=== PATIENT | female | born 1950 | race Caucasian/White ===

== ENCOUNTER 2016-08-20 21:13 | Emergency (ER) | payer SELFPAY ==
[~2016-08-20] VITALS: Ht 162.6 cm; Wt 72.7 kg
[~2016-08-20 21:13] MED LIST: AMLO-511 PO; ASPI81 PO; ATOR40TA28 PO; CLOP75 PO; CRANBERRY SUPPLEMENT PO; DSS100 PO; FERR-89 PO; FISH OIL PO; HYDR-3965 PO; INSNOV SQ; LEVO75 PO; METO-323 PO; QUET200T PO; RANO500T3 PO; RISP.5 PO; TRAZ-144 PO; VITAD1000 PO
[2016-08-20] MEDS ORDERED: LEVO125 PO (21:31)
[2016-08-20] MEDS ORDERED: [UNRECOGNIZED DRUG - CODE] PO (21:31)
[2016-08-20] MEDS ORDERED: OMEP20 PO (21:31)
[2016-08-20] MEDS ORDERED: ASCO500 PO (21:31)
[2016-08-20] MEDS ORDERED: LORA10TA7 PO (21:31)
[2016-08-20] MEDS ORDERED: DOCU250C91 PO (21:31)
[2016-08-20] MEDS ORDERED: QUET200T PO (21:31)
[2016-08-20] MEDS ORDERED: INSLAN SQ (21:31)
[2016-08-20 23:01] LABS: GLUCOSE,POINT OF CARE 75 MG/DL (70-110)
[2016-08-20 23:39] VITALS: BP 142/70
== END 2016-08-20 23:42 | disposition home or self-care (01) ==
LOC: EMS 21:16
DX: T38.3X1A Poisoning by insulin and oral hypoglycemic [antidiabetic] drugs, accidental (unintentional), initial encounter (principal); E11.9 Type 2 diabetes mellitus without complications; I10 Essential (primary) hypertension; E78.00 Pure hypercholesterolemia, unspecified; E03.9 Hypothyroidism, unspecified; Z79.4 Long term (current) use of insulin; Z79.82 Long term (current) use of aspirin; Y92.89 Other specified places as the place of occurrence of the external cause
CPT/HCPCS: 82962; 99281; 99282

== ENCOUNTER 2017-06-21 17:36 | Emergency (ER) | payer MEDICARE ==
[~2017-06-21] VITALS: Ht 160 cm; Wt 68.2 kg
[~2017-06-21 17:36] MED LIST changes: +ASCO500 PO; +DOCU250C91 PO; -DSS100 PO; -HYDR-3965 PO; +INSLAN SQ; +LEVO125 PO; -LEVO75 PO; +LORA10TA7 PO; -METO-323 PO; +METO25XL PO; +OMEP20 PO; -TRAZ-144 PO; -VITAD1000 PO; +[UNRECOGNIZED DRUG - CODE] PO
[2017-06-21] MEDS ORDERED: LEVO137T24 PO (17:54)
[2017-06-21] MEDS ORDERED: FISH1CAP63 PO (17:54)
[2017-06-21] MEDS ORDERED: CRAN300T PO (17:54)
[2017-06-21 17:58] LABS: GLUCOSE,POINT OF CARE 162 MG/DL (70-110)
[2017-06-21] MEDS ORDERED: HYDROCODONE/ACETAMINOPHEN 5-325 MG TABLET PO ONE (19:00)
[2017-06-21 19:20] VITALS: BP 135/67
== END 2017-06-21 19:27 | disposition home or self-care (01) ==
LOC: EMS 17:38
DX: S52.502A Unspecified fracture of the lower end of left radius, initial encounter for closed fracture (principal); E11.9 Type 2 diabetes mellitus without complications; E78.00 Pure hypercholesterolemia, unspecified; I10 Essential (primary) hypertension; E03.9 Hypothyroidism, unspecified; Z79.4 Long term (current) use of insulin; Z79.82 Long term (current) use of aspirin; W01.0XXA Fall on same level from slipping, tripping and stumbling without subsequent striking against object, initial encounter; Y93.01 Activity, walking, marching and hiking; Y92.89 Other specified places as the place of occurrence of the external cause; Y99.8 Other external cause status
CPT/HCPCS: 82962; 99284

== ENCOUNTER 2017-12-19 20:42 | Inpatient (IN) | payer MEDICARE ==
[~2017-12-19] VITALS: Ht 160 cm; Wt 69.8 kg
[~2017-12-19 20:42] MED LIST changes: +CRAN300T PO; -CRANBERRY SUPPLEMENT PO; -FISH OIL PO; +FISH1CAP63 PO; -LEVO125 PO; +LEVO137T24 PO
[2017-12-19] MEDS ORDERED: ACETAMINOPHEN 500 MG TABLET ONE (21:12)
[2017-12-19] MEDS ORDERED: ACETAMINOPHEN 500 MG TABLET PO ONE (21:15)
[2017-12-19] MEDS ORDERED: ACETAMINOPHEN 160 MG/5 ML SUSPENSION UDCUP PO ONE (21:15)
[2017-12-19] MEDS ORDERED: ACETAMINOPHEN 160 MG/5 ML SUSPENSION UDCUP ONE (21:16)
[2017-12-19] MEDS ORDERED: TRAZ-144 PO (21:30)
[2017-12-19] MEDS ORDERED: LOSA25TA21 PO (21:30)
[2017-12-19] MEDS ORDERED: VITAD1000 PO (21:30)
[2017-12-19] MEDS ORDERED: MEMA5 PO (21:30)
[2017-12-19 21:59] LABS: BASOPHILS % (AUTO) 0.4 % (0.0-2.0); EOSINOPHILS % (AUTO) 0.2 % (1.0-6.0); HEMATOCRIT 40.7 % (36-46); HEMOGLOBIN 13.9 g/dL (12.0-16.0); LYMPHOCYTES # (AUTO) 0.5 K/uL (1.0-4.8); LYMPHOCYTES % (AUTO) 5.9 % (22.0-44.0); MEAN CORPUSCULAR HEMOGLOBIN 31.5 pg (26.0-34.0); MEAN CORPUSCULAR HGB CONC 34.2 G/dL (31.0-37.0); MEAN CORPUSCULAR VOLUME 92 fL (80-100); MONOCYTES # (AUTO) 0.8 K/uL (0.1-1.0); MONOCYTES % (AUTO) 8.9 % (2.0-9.0); NEUTROPHILS # (AUTO) 7.3 K/uL (1.8-7.7); NEUTROPHILS % (AUTO) 84.6 % (40.0-70.0); PLATELET COUNT (AUTO) 141 K/uL (150-450); RED BLOOD CELL COUNT(AUTO) 4.43 MIL/uL (4.00-5.20); RED CELL DISTRIBUTION WIDTH 12.7 % (11.5-14.5)
[2017-12-19 22:16] LABS: CREATININE 1.69 mg/dL (0.60-1.30); POTASSIUM 4.2 mmol/L (3.5-5.1)
[2017-12-19 22:22] LABS: ALBUMIN 3.6 g/dL (3.4-5.0)
[2017-12-19 22:25] LABS: LACTIC ACID 1.9 mmol/L (0.4-2.0)
[2017-12-20] VITALS (7 sets, daily range): BP systolic 102–132; BP diastolic 53–71
[2017-12-20] MEDS ORDERED: SODIUM CHLORIDE 0.9% 2,000 ML IV ONE
[2017-12-20] MEDS ORDERED: 0.9% SODIUM CHLORIDE 10 ML SYRINGE IVP PRN
[2017-12-20] MEDS ORDERED: CefTRIAXone SODIUM 1 GM in DEXTROSE 5%-WATER 10 ML IV ONE ×2
[2017-12-20 00:19] LABS: APPEARANCE,URINE CLOUDY (CLEAR); BILIRUBIN,URINE NEGATIVE (NEGATIVE); GLUCOSE, URINE (UA) NEGATIVE (NEGATIVE); KETONES,URINE NEGATIVE (NEGATIVE); LEUKOCYTE ESTERASE ,URINE LARGE (NEGATIVE); NITRATE,URINE NEGATIVE (NEGATIVE); OCCULT BLOOD,URINE LARGE (NEGATIVE); PH,URINE 5.5 (5.0-8.0); PROTEIN,URINE SEE CONFIRM (NEGATIVE)
[2017-12-20 00:31] LABS: SULFOSALICYLIC ACID,URINE 1+ (Negative)
[2017-12-20 00:32] LABS: BACTERIA,URINE Few /HPF (None Seen); SQUAMOUS EPITHELIAL CELL,UR Few /LPF (None Seen); WBC,URINE 26-50 /HPF (0-5)
[2017-12-20] MEDS ORDERED: IPRATROPIUM BROMIDE 0.5 MG/2.5 ML NEB SOLUTION NEB PRN (01:30)
[2017-12-20] MEDS ORDERED: MORPHINE SULFATE 4 MG/ML SYRINGE IVP PRN (01:30)
[2017-12-20] MEDS ORDERED: ALBUTEROL SULFATE 2.5 MG/0.5 ML NEB SOLUTION NEB PRN (01:30)
[2017-12-20] MEDS ORDERED: ACETAMINOPHEN 325 MG TABLET PO PRN ×2 (01:30)
[2017-12-20] MEDS ORDERED: MAGNESIUM HYDROXIDE SUSPENSION 30 ML UDCUP PO PRN (01:30)
[2017-12-20] MEDS ORDERED: BISACODYL 10 MG RECTAL RECTAL SUPPOSITORY PR PRN (01:30)
[2017-12-20] MEDS ORDERED: OxyCODONE HCL/ACETAMINOPHEN 5-325 MG TABLET PO PRN (01:30)
[2017-12-20] MEDS ORDERED: ZOLPIDEM TARTRATE 5 MG TABLET PO PRN (01:30)
[2017-12-20] MEDS ORDERED: ONDANSETRON HCL 4 MG/2 ML VIAL IVP PRN ×2 (01:30)
[2017-12-20] MEDS: LEVOTHYROXINE SODIUM 137 MCG TABLET PO SCH (06:10)
[2017-12-20] MEDS: FERROUS SULFATE 325 MG EC TABLET PO SCH ×2 (08:28→18:14)
[2017-12-20] MEDS: METOPROLOL SUCCINATE 25 MG ER TABLET PO SCH (08:29)
[2017-12-20] MEDS: CLOPIDOGREL BISULFATE 75 MG TABLET PO SCH (08:29)
[2017-12-20] MEDS: PANTOPRAZOLE SODIUM 40 MG DR TABLET PO SCH (08:29)
[2017-12-20] MEDS: RisperiDONE 0.5 MG TABLET PO SCH (08:29)
[2017-12-20] MEDS: CHOLECALCIFEROL (VIT D3) 1,000 UNITS TABLET PO SCH (08:29)
[2017-12-20] MEDS: MEMANTINE HCL 5 MG TABLET PO SCH ×2 (08:29→20:43)
[2017-12-20] MEDS: QUEtiapine FUMARATE 200 MG TABLET PO SCH ×2 (08:29→20:42)
[2017-12-20] MEDS: OMEGA-3/DHA/EPA/FISH OIL 1,000 MG CAPSULE PO SCH ×2 (08:29→20:42)
[2017-12-20] MEDS: ATORVASTATIN CALCIUM 40 MG TABLET PO SCH (08:29)
[2017-12-20] MEDS: ASPIRIN 81 MG CHEWABLE TABLET PO SCH (08:30)
[2017-12-20] MEDS ORDERED: [UNRECOGNIZED DRUG - OTHER] PO SCH (09:00)
[2017-12-20] MEDS: LOSARTAN POTASSIUM 25 MG TABLET PO SCH (20:42)
[2017-12-20] MEDS: TraZODone HCL 50 MG TABLET PO SCH (20:42)
[2017-12-20] MEDS: INSULIN GLARGINE,HUM.REC.ANLOG 100 UNITS/ML SQ SCH (20:43)
[2017-12-21 05:13] VITALS: BP 119/71
[2017-12-21] MEDS: LEVOTHYROXINE SODIUM 137 MCG TABLET PO SCH (06:13)
[2017-12-21 07:19] VITALS: BP 140/83
[2017-12-21] MEDS: PANTOPRAZOLE SODIUM 40 MG DR TABLET PO SCH (08:08)
[2017-12-21] MEDS: RisperiDONE 0.5 MG TABLET PO SCH (08:08)
[2017-12-21] MEDS: FERROUS SULFATE 325 MG EC TABLET PO SCH ×2 (08:08→17:47)
[2017-12-21] MEDS: QUEtiapine FUMARATE 200 MG TABLET PO SCH ×2 (08:08→21:01)
[2017-12-21] MEDS: METOPROLOL SUCCINATE 25 MG ER TABLET PO SCH (08:08)
[2017-12-21] MEDS: MEMANTINE HCL 5 MG TABLET PO SCH ×2 (08:08→21:01)
[2017-12-21] MEDS: CLOPIDOGREL BISULFATE 75 MG TABLET PO SCH (08:08)
[2017-12-21] MEDS: ATORVASTATIN CALCIUM 40 MG TABLET PO SCH (08:08)
[2017-12-21] MEDS: OMEGA-3/DHA/EPA/FISH OIL 1,000 MG CAPSULE PO SCH ×2 (08:08→21:01)
[2017-12-21] MEDS: ASPIRIN 81 MG CHEWABLE TABLET PO SCH (08:08)
[2017-12-21] MEDS: CHOLECALCIFEROL (VIT D3) 1,000 UNITS TABLET PO SCH (08:08)
[2017-12-21 09:32] LABS: BASOPHILS % (AUTO) 0.5 % (0.0-2.0); EOSINOPHILS % (AUTO) 0.3 % (1.0-6.0); HEMATOCRIT 34.8 % (36-46); HEMOGLOBIN 12.2 g/dL (12.0-16.0); LYMPHOCYTES # (AUTO) 0.6 K/uL (1.0-4.8); LYMPHOCYTES % (AUTO) 11.2 % (22.0-44.0); MEAN CORPUSCULAR HEMOGLOBIN 32.2 pg (26.0-34.0); MEAN CORPUSCULAR HGB CONC 35.1 G/dL (31.0-37.0); MEAN CORPUSCULAR VOLUME 92 fL (80-100); MONOCYTES # (AUTO) 0.5 K/uL (0.1-1.0); MONOCYTES % (AUTO) 9.9 % (2.0-9.0); NEUTROPHILS # (AUTO) 4.3 K/uL (1.8-7.7); NEUTROPHILS % (AUTO) 78.1 % (40.0-70.0); PLATELET COUNT (AUTO) 126 K/uL (150-450); RED BLOOD CELL COUNT(AUTO) 3.78 MIL/uL (4.00-5.20); RED CELL DISTRIBUTION WIDTH 12.7 % (11.5-14.5)
[2017-12-21 09:40] LABS: INR 1.1 (0.9-1.1)
[2017-12-21 09:47] LABS: ALBUMIN 2.8 g/dL (3.4-5.0); BILIRUBIN,TOTAL 0.8 mg/dL (0.1-1.0); CALCIUM, TOTAL 8.1 mg/dL (8.8-10.5); CREATININE 1.59 mg/dL (0.60-1.30); MAGNESIUM 1.6 mg/dL (1.80-2.40); PHOSPHORUS 2.4 mg/dL (2.5-4.9); POTASSIUM 3.9 mmol/L (3.5-5.1); TOTAL PROTEIN, SERUM 6.5 g/dL (6.4-8.2)
[2017-12-21] MEDS ORDERED: MAGNESIUM SULFATE 2 GM in DEXTROSE 5%-WATER 50 ML IV PRN (10:00)
[2017-12-21] MEDS ORDERED: MAGNESIUM SULFATE 4 GM/WATER 100 ML IV PRN (10:00)
[2017-12-21 11:07] VITALS: BP 131/68
[2017-12-21] MEDS: MAGNESIUM OXIDE 400 MG TABLET PO PRN ×3 (12:12→21:06)
[2017-12-21 15:58] VITALS: BP 159/78
[2017-12-21 20:07] VITALS: BP 162/82
[2017-12-21] MEDS: LOSARTAN POTASSIUM 25 MG TABLET PO SCH (21:01)
[2017-12-21] MEDS: TraZODone HCL 50 MG TABLET PO SCH (21:01)
[2017-12-21] MEDS: INSULIN GLARGINE,HUM.REC.ANLOG 100 UNITS/ML SQ SCH (21:02)
[2017-12-21 23:37] VITALS: BP 164/92
[2017-12-22 04:09] VITALS: BP 162/82
[2017-12-22] MEDS: LEVOTHYROXINE SODIUM 137 MCG TABLET PO SCH (05:50)
[2017-12-22 07:22] VITALS: BP 156/90
[2017-12-22] MEDS: PANTOPRAZOLE SODIUM 40 MG DR TABLET PO SCH (09:18)
[2017-12-22] MEDS: ATORVASTATIN CALCIUM 40 MG TABLET PO SCH (09:18)
[2017-12-22] MEDS: FERROUS SULFATE 325 MG EC TABLET PO SCH ×2 (09:18→18:01)
[2017-12-22] MEDS: QUEtiapine FUMARATE 200 MG TABLET PO SCH ×2 (09:18→21:26)
[2017-12-22] MEDS: CHOLECALCIFEROL (VIT D3) 1,000 UNITS TABLET PO SCH (09:18)
[2017-12-22] MEDS: OMEGA-3/DHA/EPA/FISH OIL 1,000 MG CAPSULE PO SCH ×2 (09:18→21:27)
[2017-12-22] MEDS: CLOPIDOGREL BISULFATE 75 MG TABLET PO SCH (09:18)
[2017-12-22] MEDS: MEMANTINE HCL 5 MG TABLET PO SCH ×2 (09:18→21:26)
[2017-12-22] MEDS: RisperiDONE 0.5 MG TABLET PO SCH (09:18)
[2017-12-22] MEDS: ASPIRIN 81 MG CHEWABLE TABLET PO SCH (09:19)
[2017-12-22] MEDS: METOPROLOL SUCCINATE 25 MG ER TABLET PO SCH (09:20)
[2017-12-22 11:14] VITALS: BP 116/74
[2017-12-22] MEDS: CefTRIAXone SODIUM 1 GM in DEXTROSE 5%-WATER 10 ML IV SCH (12:26)
[2017-12-22 15:09] VITALS: BP 119/74
[2017-12-22 19:47] VITALS: BP 155/93
[2017-12-22] MEDS: LOSARTAN POTASSIUM 25 MG TABLET PO SCH (21:26)
[2017-12-22] MEDS: TraZODone HCL 50 MG TABLET PO SCH (21:27)
[2017-12-22] MEDS: INSULIN GLARGINE,HUM.REC.ANLOG 100 UNITS/ML SQ SCH (21:38)
[2017-12-22 23:33] VITALS: BP 147/80
[2017-12-23 00:09] LABS: GLUCOMETER DEV NAME(LOC) 5N 2S; GLUCOSE,POINT OF CARE 226 MG/DL (70-110)
[2017-12-23 00:09] LABS: GLUCOMETER DEV NAME(LOC) 5N 2S; GLUCOSE,POINT OF CARE 159 MG/DL (70-110)
[2017-12-23 04:27] VITALS: BP 141/83
[2017-12-23] MEDS: LEVOTHYROXINE SODIUM 137 MCG TABLET PO SCH (06:29)
[2017-12-23 07:13] VITALS: BP 127/77
[2017-12-23] MEDS: QUEtiapine FUMARATE 200 MG TABLET PO SCH (08:04)
[2017-12-23] MEDS: CHOLECALCIFEROL (VIT D3) 1,000 UNITS TABLET PO SCH (08:04)
[2017-12-23] MEDS: CLOPIDOGREL BISULFATE 75 MG TABLET PO SCH (08:04)
[2017-12-23] MEDS: ATORVASTATIN CALCIUM 40 MG TABLET PO SCH (08:04)
[2017-12-23] MEDS: PANTOPRAZOLE SODIUM 40 MG DR TABLET PO SCH (08:04)
[2017-12-23] MEDS: ASPIRIN 81 MG CHEWABLE TABLET PO SCH (08:04)
[2017-12-23] MEDS: RisperiDONE 0.5 MG TABLET PO SCH (08:05)
[2017-12-23] MEDS: MEMANTINE HCL 5 MG TABLET PO SCH (08:05)
[2017-12-23] MEDS: OMEGA-3/DHA/EPA/FISH OIL 1,000 MG CAPSULE PO SCH (08:05)
[2017-12-23] MEDS: METOPROLOL SUCCINATE 25 MG ER TABLET PO SCH (08:05)
[2017-12-23] MEDS: FERROUS SULFATE 325 MG EC TABLET PO SCH (08:05)
[2017-12-23 11:01] VITALS: BP 137/75
[2017-12-23] MEDS ORDERED: CEFX1I IV (12:36)
[2017-12-23] MEDS: CefTRIAXone SODIUM 1 GM in DEXTROSE 5%-WATER 10 ML IV SCH (13:09)
[2017-12-23 14:45] VITALS: BP 126/78
== END 2017-12-23 18:15 | DRG 872 ==
LOC: EMS 23:36 → 5N 12-20 00:01
PROVIDERS: ADMIT Internal Medicine; ATTEND Internal Medicine
DX: A41.9 Sepsis, unspecified organism (principal); N17.9 Acute kidney failure, unspecified; F20.0 Paranoid schizophrenia; N39.0 Urinary tract infection, site not specified; E03.9 Hypothyroidism, unspecified; D50.9 Iron deficiency anemia, unspecified; I12.9 Hypertensive chronic kidney disease with stage 1 through stage 4 chronic kidney disease, or unspecified chronic kidney disease; E11.22 Type 2 diabetes mellitus with diabetic chronic kidney disease; E78.00 Pure hypercholesterolemia, unspecified; E86.0 Dehydration; I25.10 Atherosclerotic heart disease of native coronary artery without angina pectoris; R26.9 Unspecified abnormalities of gait and mobility; B96.20 Unspecified Escherichia coli [E. coli] as the cause of diseases classified elsewhere; N18.3 Chronic kidney disease, stage 3 (moderate); M19.90 Unspecified osteoarthritis, unspecified site; K21.9 Gastro-esophageal reflux disease without esophagitis; K59.00 Constipation, unspecified; Z95.1 Presence of aortocoronary bypass graft; Z90.710 Acquired absence of both cervix and uterus; Z79.4 Long term (current) use of insulin; Z79.02 Long term (current) use of antithrombotics/antiplatelets; Z79.82 Long term (current) use of aspirin; Z79.899 Other long term (current) drug therapy
CPT/HCPCS: 83605; 83735; 84100; 87040; 87086; 93005; 97116; 97162; 97166; 97530; 97535; 99291; J0696; J1815; J7030; J7060

== ENCOUNTER 2018-01-28 10:14 | Emergency (ER) | payer MEDICARE ==
[~2018-01-28] VITALS: Ht 162.6 cm; Wt 72.7 kg
[~2018-01-28 10:14] MED LIST changes: -AMLO-511 PO; -ASCO500 PO; +CEFX1I IV; -CRAN300T PO; -DOCU250C91 PO; -LORA10TA7 PO; +LOSA25TA21 PO; +MEMA5 PO; -RANO500T3 PO; +TRAZ-219 PO; +VITAD1000 PO; -[UNRECOGNIZED DRUG - CODE] PO
[2018-01-28] MEDS ORDERED: MEMA5 PO (10:32)
[2018-01-28] MEDS ORDERED: IBUPROFEN 800 MG TABLET PO ONE (11:00)
[2018-01-28] MEDS ORDERED: BACITRACIN 0.9 GM PACKET OINTMENT TP ONE (11:30)
[2018-01-28 11:45] VITALS: BP 139/74
== END 2018-01-28 11:53 | disposition home or self-care (01) ==
LOC: EMS 10:16
DX: S91.202A Unspecified open wound of left great toe with damage to nail, initial encounter (principal); E11.9 Type 2 diabetes mellitus without complications; E78.00 Pure hypercholesterolemia, unspecified; I10 Essential (primary) hypertension; E03.9 Hypothyroidism, unspecified; Z88.5 Allergy status to narcotic agent; Z79.4 Long term (current) use of insulin; W19.XXXA Unspecified fall, initial encounter; Y93.89 Activity, other specified; Y92.89 Other specified places as the place of occurrence of the external cause; Y99.8 Other external cause status
CPT/HCPCS: 11730; 99284

== ENCOUNTER 2018-03-31 19:38 | Emergency (ER) | payer MEDICARE ==
[~2018-03-31] VITALS: Ht 162.6 cm; Wt 72.7 kg
[~2018-03-31 19:38] MED LIST changes: +LOSA25TA16 PO; -LOSA25TA21 PO
[2018-03-31 21:57] LABS: APPEARANCE,URINE CLOUDY (CLEAR); BILIRUBIN,URINE NEGATIVE (NEGATIVE); GLUCOSE, URINE (UA) NEGATIVE (NEGATIVE); KETONES,URINE NEGATIVE (NEGATIVE); LEUKOCYTE ESTERASE ,URINE MODERATE (NEGATIVE); NITRATE,URINE POSITIVE (NEGATIVE); OCCULT BLOOD,URINE TRACE (NEGATIVE); PH,URINE 5.5 (5.0-8.0); PROTEIN,URINE NEGATIVE (NEGATIVE); UROBILINOGEN,URINE 0.2 mg/dL (<=1.0)
[2018-03-31 21:58] LABS: BASOPHILS % (AUTO) 0.4 % (0.0-2.0); EOSINOPHILS % (AUTO) 0.7 % (1.0-6.0); HEMATOCRIT 41.5 % (36-46); HEMOGLOBIN 14.1 g/dL (12.0-16.0); LYMPHOCYTES # (AUTO) 1.2 K/uL (1.0-4.8); LYMPHOCYTES % (AUTO) 10.5 % (22.0-44.0); MEAN CORPUSCULAR VOLUME 91 fL (80-100); MONOCYTES # (AUTO) 0.7 K/uL (0.1-1.0); MONOCYTES % (AUTO) 6.4 % (2.0-9.0); NEUTROPHILS # (AUTO) 9.2 K/uL (1.8-7.7); RED BLOOD CELL COUNT(AUTO) 4.55 MIL/uL (4.00-5.20); RED CELL DISTRIBUTION WIDTH 13.3 % (11.5-14.5)
[2018-03-31 22:06] LABS: RBC,URINE 0-2 /HPF (0-2)
[2018-03-31 22:07] LABS: BACTERIA,URINE Many /HPF (None Seen); SQUAMOUS EPITHELIAL CELL,UR None Seen /LPF (None Seen); WBC,URINE 26-50 /HPF (0-5)
[2018-03-31 22:13] LABS: CALCIUM, TOTAL 9.2 mg/dL (8.8-10.5); CREATININE 1.36 mg/dL (0.60-1.30); POTASSIUM 4.8 mmol/L (3.5-5.1)
[2018-03-31 22:19] LABS: ALBUMIN 3.8 g/dL (3.4-5.0); BILIRUBIN,TOTAL 0.4 mg/dL (0.1-1.0); PLATELET COUNT (AUTO) 176 K/uL (150-450); TOTAL PROTEIN, SERUM 8.2 g/dL (6.4-8.2)
[2018-03-31 22:51] VITALS: BP 148/90
[2018-03-31] MEDS ORDERED: CefTRIAXone SODIUM 1 GM/VIAL IM ONE (23:00)
[2018-03-31] MEDS ORDERED: LIDOCAINE/PF 1% 2 ML VIAL IM ONE (23:00)
== END 2018-03-31 23:09 | disposition home or self-care (01) ==
LOC: EMS 19:39
DX: N39.0 Urinary tract infection, site not specified (principal); I10 Essential (primary) hypertension; E03.9 Hypothyroidism, unspecified; F20.9 Schizophrenia, unspecified; Z88.5 Allergy status to narcotic agent; Z79.01 Long term (current) use of anticoagulants; Z79.82 Long term (current) use of aspirin; Z79.899 Other long term (current) drug therapy; Z79.4 Long term (current) use of insulin
CPT/HCPCS: 36415; 51701; 80053; 81001; 85025; 87077; 87086; 87186; 96372; 99284; J0696; J3490

== ENCOUNTER 2018-08-26 14:03 | Emergency (ER) | payer MEDICARE ==
[~2018-08-26] VITALS: Ht 162.6 cm; Wt 81.8 kg
[~2018-08-26 14:03] MED LIST changes: -CLOP75 PO; +CLOP75TA17 PO; -LOSA25TA16 PO; +LOSA25TA41 PO
[2018-08-26] MEDS ORDERED: ASPIRIN 81 MG CHEWABLE TABLET PO ONE (14:30)
[2018-08-26 14:34] LABS: GLUCOSE,POINT OF CARE 238 MG/DL (70-110)
[2018-08-26 15:37] LABS: BASOPHILS % (AUTO) 0.4 % (0.0-2.0); EOSINOPHILS % (AUTO) 0.7 % (1.0-6.0); HEMATOCRIT 39.9 % (36-46); HEMOGLOBIN 13.8 g/dL (12.0-16.0); LYMPHOCYTES % (AUTO) 14.8 % (22.0-44.0); MEAN CORPUSCULAR HGB CONC 34.4 G/dL (31.0-37.0); MEAN CORPUSCULAR VOLUME 93 fL (80-100); MONOCYTES # (AUTO) 0.5 K/uL (0.1-1.0); NEUTROPHILS # (AUTO) 4.9 K/uL (1.8-7.7); NEUTROPHILS % (AUTO) 76.1 % (40.0-70.0); PLATELET COUNT (AUTO) 166 K/uL (150-450); RED CELL DISTRIBUTION WIDTH 12.6 % (11.5-14.5)
[2018-08-26 16:21] LABS: CREATININE 1.33 mg/dL (0.60-1.30); POTASSIUM 4.3 mmol/L (3.5-5.1)
[2018-08-26 16:29] LABS: ALBUMIN 3.4 g/dL (3.4-5.0); BILIRUBIN,TOTAL 0.4 mg/dL (0.1-1.0); TOTAL PROTEIN, SERUM 7.3 g/dL (6.4-8.2)
[2018-08-26 17:02] LABS: APPEARANCE,URINE CLOUDY (CLEAR); BILIRUBIN,URINE NEGATIVE (NEGATIVE); GLUCOSE, URINE (UA) NEGATIVE (NEGATIVE); KETONES,URINE NEGATIVE (NEGATIVE); LEUKOCYTE ESTERASE ,URINE SMALL (NEGATIVE); NITRATE,URINE POSITIVE (NEGATIVE); OCCULT BLOOD,URINE TRACE (NEGATIVE); PH,URINE 5.5 (5.0-8.0); PROTEIN,URINE NEGATIVE (NEGATIVE); UROBILINOGEN,URINE 0.2 mg/dL (<=1.0)
[2018-08-26 17:10] LABS: BACTERIA,URINE Many /HPF (None Seen); SQUAMOUS EPITHELIAL CELL,UR Rare /LPF (None Seen)
[2018-08-26 18:20] VITALS: BP 120/53
== END 2018-08-26 19:02 | disposition home or self-care (01) ==
LOC: EMS 14:04
DX: R07.9 Chest pain, unspecified (principal); I10 Essential (primary) hypertension; E78.00 Pure hypercholesterolemia, unspecified; E11.9 Type 2 diabetes mellitus without complications; E03.9 Hypothyroidism, unspecified; F20.9 Schizophrenia, unspecified; Z79.4 Long term (current) use of insulin; Z79.82 Long term (current) use of aspirin; Z88.5 Allergy status to narcotic agent
CPT/HCPCS: 87086; 93005

== ENCOUNTER 2020-06-29 10:35 | Emergency (ER) | payer MEDICARE ==
[~2020-06-29] VITALS: Ht 165.1 cm; Wt 95.5 kg
[~2020-06-29 10:35] MED LIST changes: +ASPI-728 PO; -ASPI81 PO; -CEFX1I IV; +CHOL100018 PO; +CLOP-31 PO; -CLOP75TA17 PO; -INSNOV SQ; +LOSA25TA21 PO; -LOSA25TA41 PO; -RISP.5 PO; +RISP0.5T39 PO; -TRAZ-219 PO; +TRAZ-252 PO; -VITAD1000 PO
[2020-06-29 10:58] LABS: GLUCOSE,POINT OF CARE 96 MG/DL (70-110)
[2020-06-29 12:27] LABS: BASOPHILS % (AUTO) 0.7 % (0.0-2.0); EOSINOPHILS % (AUTO) 1.2 % (1.0-6.0); HEMATOCRIT 36.8 % (36-46); HEMOGLOBIN 12.1 g/dL (12.0-16.0); LYMPHOCYTES # (AUTO) 1.3 K/uL (1.0-4.8); LYMPHOCYTES % (AUTO) 22.3 % (22.0-44.0); MEAN CORPUSCULAR HEMOGLOBIN 33.2 pg (26.0-34.0); MEAN CORPUSCULAR HGB CONC 32.9 G/dL (31.0-37.0); MEAN CORPUSCULAR VOLUME 101 fL (80-100); MONOCYTES # (AUTO) 0.4 K/uL (0.1-1.0); MONOCYTES % (AUTO) 7.4 % (2.0-9.0); NEUTROPHILS # (AUTO) 4.1 K/uL (1.8-7.7); NEUTROPHILS % (AUTO) 68.4 % (40.0-70.0); PLATELET COUNT (AUTO) 199 K/uL (150-450); RED BLOOD CELL COUNT(AUTO) 3.65 MIL/uL (4.00-5.20); RED CELL DISTRIBUTION WIDTH 16.5 % (11.5-14.5)
[2020-06-29 12:36] LABS: CALCIUM, TOTAL 8.5 mg/dL (8.8-10.5); CREATININE 1.12 mg/dL (0.60-1.30); POTASSIUM 4.7 mmol/L (3.5-5.1)
[2020-06-29 12:39] LABS: PROTHROMBIN TIME 10.5 SEC (9.4-11.6)
[2020-06-29] MEDS ORDERED: LORazepam 2 MG/ML VIAL IVP ONE (12:45)
[2020-06-29 13:01] LABS: ALBUMIN 3.2 g/dL (3.4-5.0); BILIRUBIN,TOTAL 0.5 mg/dL (0.1-1.0); TOTAL PROTEIN, SERUM 7.3 g/dL (6.4-8.2)
[2020-06-29 14:23] VITALS: BP 136/82
== END 2020-06-29 14:55 | disposition home or self-care (01) ==
LOC: EMS 10:38
DX: F20.0 Paranoid schizophrenia (principal); I12.9 Hypertensive chronic kidney disease with stage 1 through stage 4 chronic kidney disease, or unspecified chronic kidney disease; E11.22 Type 2 diabetes mellitus with diabetic chronic kidney disease; N18.30 Chronic kidney disease, stage 3 unspecified; F32.9 Major depressive disorder, single episode, unspecified; E78.00 Pure hypercholesterolemia, unspecified; Z86.73 Personal history of transient ischemic attack (TIA), and cerebral infarction without residual deficits; Z88.5 Allergy status to narcotic agent; Z79.4 Long term (current) use of insulin
CPT/HCPCS: 71045; 74176; 80053; 82271; 82550; 82962; 83690; 83880; 84484; 85025; 85610; 85730; 93005; 96374; 99285; J2060

== ENCOUNTER 2021-08-24 12:12 | Emergency (ER) | payer MEDICARE ==
[~2021-08-24] VITALS: Ht 165.1 cm; Wt 75.0 kg
[~2021-08-24 12:12] MED LIST changes: +ACET-3207 PO; +ASPI-1450 PO; -ASPI-728 PO; +BISA-72 PO; +CHOL-35 PO; -CHOL100018 PO; -CLOP-31 PO; +CLOP75TA60 PO; +DOCU-270 PO; -FERR-89 PO; -FISH1CAP63 PO; +HEPA500018 SQ; +LOSA-381 PO; -LOSA25TA21 PO; +MOM30 PO; +MULT-700 PO; +NIFE30TA5 PO; -TRAZ-252 PO; +ZOLP-280 PO
[2021-08-24 12:44] VITALS: BP 117/77
[2021-08-24 13:49] LABS: BASOPHILS % (AUTO) 0.4 % (0.0-2.0); EOSINOPHILS % (AUTO) 1.1 % (1.0-6.0); HEMATOCRIT 35.9 % (36-46); HEMOGLOBIN 12.1 g/dL (12.0-16.0); LYMPHOCYTES # (AUTO) 1.2 K/uL (1.0-4.8); LYMPHOCYTES % (AUTO) 16.2 % (22.0-44.0); MEAN CORPUSCULAR HEMOGLOBIN 32.7 pg (26.0-34.0); MEAN CORPUSCULAR HGB CONC 33.8 G/dL (31.0-37.0); MEAN CORPUSCULAR VOLUME 97 fL (80-100); MONOCYTES # (AUTO) 0.4 K/uL (0.1-1.0); MONOCYTES % (AUTO) 6.2 % (2.0-9.0); NEUTROPHILS # (AUTO) 5.5 K/uL (1.8-7.7); NEUTROPHILS % (AUTO) 76.1 % (40.0-70.0); PLATELET COUNT (AUTO) 147 K/uL (150-450); RED BLOOD CELL COUNT(AUTO) 3.71 MIL/uL (4.00-5.20); RED CELL DISTRIBUTION WIDTH 12.7 % (11.5-14.5)
[2021-08-24 13:58] LABS: ANION GAP 9 mmol/L (8-16); CALCIUM, TOTAL 8.8 mg/dL (8.8-10.5); CARBON DIOXIDE 25 mmol/L (22-29); CHLORIDE 107 mmol/L (98-107); CREATININE 0.89 mg/dL (0.60-1.30); GLOMERULAR FILTR. RATE CALC > 60 mL/min (>60); GLUCOSE,RANDOM 146 mg/dL (70-110); POTASSIUM 4.2 mmol/L (3.5-5.1); SODIUM SERUM 141 mmol/L (136-145); UREA NITROGEN, BLOOD 39 mg/dL (7-18)
[2021-08-24 14:02] LABS: APPEARANCE,URINE CLOUDY (CLEAR); BILIRUBIN,URINE NEGATIVE (NEGATIVE); GLUCOSE, URINE (UA) NEGATIVE (NEGATIVE); KETONES,URINE NEGATIVE (NEGATIVE); LEUKOCYTE ESTERASE ,URINE MODERATE (NEGATIVE); NITRATE,URINE POSITIVE (NEGATIVE); OCCULT BLOOD,URINE MODERATE (NEGATIVE); PROTEIN,URINE TRACE (NEGATIVE); UROBILINOGEN,URINE 0.2 mg/dL (<=1.0)
[2021-08-24] MEDS ORDERED: MACR100 PO (14:12)
[2021-08-24 14:22] LABS: BACTERIA,URINE Many /HPF (None Seen); SQUAMOUS EPITHELIAL CELL,UR Moderate /LPF (None Seen)
== END 2021-08-24 14:33 | disposition home or self-care (01) ==
LOC: EMS 12:12
DX: N39.0 Urinary tract infection, site not specified (principal); E11.9 Type 2 diabetes mellitus without complications; F20.9 Schizophrenia, unspecified; Z88.5 Allergy status to narcotic agent; Z79.899 Other long term (current) drug therapy
CPT/HCPCS: 80048; 81001; 85025; 87086; 99283

== ENCOUNTER 2021-08-29 18:29 | Inpatient (IN) | payer MEDICARE ==
[~2021-08-29] VITALS: Ht 177.8 cm; Wt 72.7 kg
[~2021-08-29 18:29] MED LIST changes: +MACR100 PO
[2021-08-29] MEDS ORDERED: ACETAMINOPHEN 1000 MG/ISO-OSM 100 ML IV ONE (18:45)
[2021-08-29] MEDS ORDERED: VANCOMYCIN HCL 1 GM/D5% WATER 200 ML IV ONE (18:45)
[2021-08-29] MEDS ORDERED: PIPERACILLIN/TAZO 3.375 GM/D5W 50 ML IV ONE (18:45)
[2021-08-29] MEDS ORDERED: 0.9% SODIUM CHLORIDE 10 ML SYRINGE IVP PRN (18:45)
[2021-08-29] MEDS ORDERED: SODIUM CHLORIDE 0.9% 1,000 ML IV ONE (18:45)
[2021-08-29 19:25] LABS: BASOPHILS % (AUTO) 0.2 % (0.0-2.0); EOSINOPHILS % (AUTO) 2.4 % (1.0-6.0); HEMOGLOBIN 13.3 g/dL (12.0-16.0); LYMPHOCYTES # (AUTO) 0.7 K/uL (1.0-4.8); LYMPHOCYTES % (AUTO) 7.1 % (22.0-44.0); MEAN CORPUSCULAR HEMOGLOBIN 32.2 pg (26.0-34.0); MEAN CORPUSCULAR HGB CONC 33.1 G/dL (31.0-37.0); MEAN CORPUSCULAR VOLUME 97 fL (80-100); MONOCYTES # (AUTO) 0.6 K/uL (0.1-1.0); MONOCYTES % (AUTO) 5.9 % (2.0-9.0); NEUTROPHILS # (AUTO) 8.5 K/uL (1.8-7.7); NEUTROPHILS % (AUTO) 84.4 % (40.0-70.0); PLATELET COUNT (AUTO) 196 K/uL (150-450); RED BLOOD CELL COUNT(AUTO) 4.11 MIL/uL (4.00-5.20); RED CELL DISTRIBUTION WIDTH 13.3 % (11.5-14.5)
[2021-08-29 19:34] LABS: ANION GAP 12 mmol/L (8-16); CALCIUM, TOTAL 9.6 mg/dL (8.8-10.5); CARBON DIOXIDE 21 mmol/L (22-29); CHLORIDE 103 mmol/L (98-107); CREATININE 0.92 mg/dL (0.60-1.30); GLOMERULAR FILTR. RATE CALC > 60 mL/min (>60); GLUCOSE,RANDOM 158 mg/dL (70-110); POTASSIUM 4.3 mmol/L (3.5-5.1); SODIUM SERUM 136 mmol/L (136-145); UREA NITROGEN, BLOOD 34 mg/dL (7-18)
[2021-08-29 19:35] LABS: PROTHROMBIN TIME 10.8 SEC (9.4-11.6)
[2021-08-29 19:40] LABS: ALANINE AMINOTRANSFERASE 56 U/L (12-78); ALBUMIN 3.7 g/dL (3.4-5.0); ALKALINE PHOSPHATASE 168 U/L (46-116); ASPARTATE AMINOTRANSFERASE 25 U/L (15-37); BILIRUBIN,TOTAL 0.5 mg/dL (0.1-1.0); CREATINE KINASE, TOTAL ONLY 31 U/L (26-192); TOTAL PROTEIN, SERUM 8.6 g/dL (6.4-8.2)
[2021-08-29 19:42] LABS: AMMONIA 12 umol/L (11-32); LACTIC ACID 1.5 mmol/L (0.4-2.0)
[2021-08-29 19:45] LABS: B-TYPE NATRIURETIC PEPTIDE 159 pg/mL (0-100)
[2021-08-29 20:29] LABS: COVID AG,FIA SOURCE NASOPHARYNGEAL
[2021-08-29 20:50] LABS: INFLUENZA TYPE A NEGATIVE FOR TYPE A (NEGATIVE); INFLUENZA TYPE B NEGATIVE FOR TYPE B (NEGATIVE)
[2021-08-30] MEDS ORDERED: ONDANSETRON HCL 4 MG/2 ML VIAL IVP PRN (01:45)
[2021-08-30] MEDS ORDERED: ACETAMINOPHEN 325 MG TABLET PO PRN (01:45)
[2021-08-30 01:56] LABS: APPEARANCE,URINE CLEAR (CLEAR); BILIRUBIN,URINE NEGATIVE (NEGATIVE); GLUCOSE, URINE (UA) NEGATIVE (NEGATIVE); KETONES,URINE NEGATIVE (NEGATIVE); LEUKOCYTE ESTERASE ,URINE SMALL (NEGATIVE); NITRATE,URINE NEGATIVE (NEGATIVE); OCCULT BLOOD,URINE TRACE (NEGATIVE); PH,URINE 5.5 (5.0-8.0); PROTEIN,URINE NEGATIVE (NEGATIVE); UROBILINOGEN,URINE 0.2 mg/dL (<=1.0)
[2021-08-30 02:11] LABS: BACTERIA,URINE None Seen /HPF (None Seen); RBC,URINE 0-2 /HPF (0-2)
[2021-08-30 04:13] VITALS: BP 135/75
[2021-08-30 06:56] LABS: GLUCOMETER DEV NAME(LOC) 6N.2; GLUCOSE,POINT OF CARE 120 MG/DL (70-110)
[2021-08-30] MEDS: RINGERS SOLUTION,LACTATED 1,000 ML IV SCH ×2 (06:57→21:24)
[2021-08-30] MEDS ORDERED: ZOLPIDEM TARTRATE 5 MG TABLET PO PRN (07:15)
[2021-08-30] MEDS ORDERED: BISACODYL 5 MG EC TABLET PO PRN (07:15)
[2021-08-30 08:30] VITALS: BP 148/81
[2021-08-30] MEDS ORDERED: OMEPRAZOLE 20 MG CAPSULE PO SCH (09:00)
[2021-08-30] MEDS ORDERED: PANTOPRAZOLE SODIUM 40 MG DR TABLET PO SCH (09:00)
[2021-08-30 09:04] VITALS: BP 148/81
[2021-08-30] MEDS: CeFAZolin 1 GM/DEXTROSE 50 ML IV SCH ×2 (09:34→17:12)
[2021-08-30] MEDS: CLOPIDOGREL BISULFATE 75 MG TABLET PO SCH (09:34)
[2021-08-30] MEDS: RisperiDONE 0.5 MG TABLET PO SCH ×2 (09:34→21:10)
[2021-08-30] MEDS: HEPARIN SODIUM,PORCINE 5,000 UNITS/ML VIAL SQ SCH ×2 (09:34→16:47)
[2021-08-30] MEDS: DOCUSATE SODIUM 100 MG CAPSULE PO SCH ×2 (09:34→21:10)
[2021-08-30] MEDS: MEMANTINE HCL 5 MG TABLET PO SCH ×2 (09:34→21:09)
[2021-08-30] MEDS: METOPROLOL SUCCINATE 25 MG ER TABLET PO SCH (09:34)
[2021-08-30] MEDS: ATORVASTATIN CALCIUM 40 MG TABLET PO SCH (09:34)
[2021-08-30] MEDS: ASPIRIN 81 MG CHEWABLE TABLET PO SCH (09:35)
[2021-08-30] MEDS: CHOLECALCIFEROL (VIT D3) 1,000 UNITS [25 MCG] TABLET PO SCH (09:35)
[2021-08-30] MEDS: QUEtiapine FUMARATE 200 MG TABLET PO SCH (09:37)
[2021-08-30] MEDS: NIFEdipine 30 MG ER TABLET PO SCH (09:42)
[2021-08-30] MEDS: MULTIVITAMINS WITH MINERALS, THERAPEUTIC TABLET PO SCH (10:04)
[2021-08-30] MEDS ORDERED: CefTRIAXone 1 GM/DEXTROSE 50 ML IV SCH (11:00)
[2021-08-30 15:43] VITALS: BP 120/63
[2021-08-30 19:50] VITALS: BP 113/66
[2021-08-30] MEDS ORDERED: LOSARTAN POTASSIUM 50 MG TABLET PO SCH (21:00)
[2021-08-30] MEDS ORDERED: QUEtiapine FUMARATE 200 MG TABLET PO SCH (21:00)
[2021-08-30] MEDS ORDERED: INSULIN GLARGINE,HUM.REC.ANLOG 100 UNITS/ML SQ SCH (21:00)
[2021-08-30 21:41] LABS: GLUCOMETER DEV NAME(LOC) 4E.2; GLUCOSE,POINT OF CARE 164 MG/DL (70-110)
[2021-08-31] MEDS: HEPARIN SODIUM,PORCINE 5,000 UNITS/ML VIAL SQ SCH ×2 (00:26→08:47)
[2021-08-31] MEDS: CeFAZolin 1 GM/DEXTROSE 50 ML IV SCH ×2 (00:32→08:43)
[2021-08-31 04:45] VITALS: BP 145/92
[2021-08-31] MEDS ORDERED: LEVOTHYROXINE SODIUM 137 MCG TABLET PO SCH (06:00)
[2021-08-31 07:58] VITALS: BP 160/82
[2021-08-31] MEDS: CLOPIDOGREL BISULFATE 75 MG TABLET PO SCH (08:43)
[2021-08-31] MEDS: ATORVASTATIN CALCIUM 40 MG TABLET PO SCH (08:44)
[2021-08-31] MEDS: CHOLECALCIFEROL (VIT D3) 1,000 UNITS [25 MCG] TABLET PO SCH (08:44)
[2021-08-31] MEDS: ASPIRIN 81 MG CHEWABLE TABLET PO SCH (08:44)
[2021-08-31] MEDS: METOPROLOL SUCCINATE 25 MG ER TABLET PO SCH (08:45)
[2021-08-31] MEDS: NIFEdipine 30 MG ER TABLET PO SCH (08:45)
[2021-08-31] MEDS: MEMANTINE HCL 5 MG TABLET PO SCH (08:46)
[2021-08-31] MEDS: QUEtiapine FUMARATE 200 MG TABLET PO SCH (08:47)
[2021-08-31] MEDS: MULTIVITAMINS WITH MINERALS, THERAPEUTIC TABLET PO SCH (08:53)
[2021-08-31] MEDS: RisperiDONE 0.5 MG TABLET PO SCH (08:53)
[2021-08-31] MEDS ORDERED: DOCUSATE SODIUM 100 MG/10 ML LIQUID UDCUP PO SCH (09:00)
[2021-08-31] MEDS ORDERED: LANSOPRAZOLE 30 MG SOLUBLE TABLET PO SCH (09:00)
[2021-08-31] MEDS ORDERED: CEPH500C3 PO (10:34)
[2021-08-31] MEDS: RINGERS SOLUTION,LACTATED 1,000 ML IV SCH (10:41)
== END 2021-08-31 17:10 | disposition hospice, home (50) | DRG 689 ==
LOC: EMS 18:33 → 6N 08-30 01:50 → 6S 08-30 04:48
PROVIDERS: ADMIT Internal Medicine; ATTEND Internal Medicine
DX: N39.0 Urinary tract infection, site not specified (principal); G93.41 Metabolic encephalopathy; G91.9 Hydrocephalus, unspecified; E11.9 Type 2 diabetes mellitus without complications; I11.9 Hypertensive heart disease without heart failure; I25.10 Atherosclerotic heart disease of native coronary artery without angina pectoris; E03.9 Hypothyroidism, unspecified; E78.5 Hyperlipidemia, unspecified; F20.9 Schizophrenia, unspecified; R29.6 Repeated falls; Z66 Do not resuscitate; Z20.822 Contact with and (suspected) exposure to COVID-19; Z82.49 Family history of ischemic heart disease and other diseases of the circulatory system; Z83.3 Family history of diabetes mellitus; Z79.82 Long term (current) use of aspirin; Z79.4 Long term (current) use of insulin; Z79.899 Other long term (current) drug therapy; I69.398 Other sequelae of cerebral infarction
CPT/HCPCS: 70450; 71045; 80053; 81001; 82140; 82550; 82962; 83605; 83880; 84145; 84484; 85025; 85610; 87040; 87804; 93005; 99291; J0131; J0690; J0696; J1644; J1815; J2543; J3370; J7030; J7120; 36415-L1; 36415-TC

== ENCOUNTER 2022-03-28 08:50 | Inpatient (IN) | payer MEDICARE ==
[~2022-03-28] VITALS: Ht 170.2 cm; Wt 56.0 kg
[~2022-03-28 08:50] MED LIST changes: +CEPH-558 PO; -CHOL-35 PO; +CHOL25TA4 PO; -DOCU-270 PO; +DOCU-385 PO; -HEPA500018 SQ; -MACR100 PO; +MAGN-169 PO; -MOM30 PO; +NIFE-141 PO; -NIFE30TA5 PO
[2022-03-28 10:03] LABS: BASOPHILS % (AUTO) 0.4 % (0.0-2.0); EOSINOPHILS % (AUTO) 0.4 % (1.0-6.0); HEMATOCRIT 43.2 % (36-46); HEMOGLOBIN 14.3 g/dL (12.0-16.0); LYMPHOCYTES # (AUTO) 0.8 K/uL (1.0-4.8); LYMPHOCYTES % (AUTO) 13.1 % (22.0-44.0); MEAN CORPUSCULAR HEMOGLOBIN 30.4 pg (26.0-34.0); MEAN CORPUSCULAR HGB CONC 33.2 G/dL (31.0-37.0); MEAN CORPUSCULAR VOLUME 92 fL (80-100); MONOCYTES # (AUTO) 0.4 K/uL (0.1-1.0); MONOCYTES % (AUTO) 6.9 % (2.0-9.0); NEUTROPHILS # (AUTO) 5.1 K/uL (1.8-7.7); NEUTROPHILS % (AUTO) 79.2 % (40.0-70.0); PLATELET COUNT (AUTO) 155 K/uL (150-450); RED BLOOD CELL COUNT(AUTO) 4.72 MIL/uL (4.00-5.20)
[2022-03-28 10:15] LABS: CALCIUM, TOTAL 9.3 mg/dL (8.8-10.5); CREATININE 0.97 mg/dL (0.60-1.30); POTASSIUM 3.9 mmol/L (3.5-5.1)
[2022-03-28 10:22] LABS: LACTIC ACID 0.7 mmol/L (0.4-2.0)
[2022-03-28 10:23] LABS: AMMONIA < 10 umol/L (11-32)
[2022-03-28 10:30] LABS: ALBUMIN 3.3 g/dL (3.4-5.0); BILIRUBIN,TOTAL 0.8 mg/dL (0.1-1.0); THYROID STIMULATING HORMONE 28.36 uIU/mL (0.36-3.74); TOTAL PROTEIN, SERUM 7.2 g/dL (6.4-8.2)
[2022-03-28 10:42] LABS: PROTHROMBIN TIME 10.9 SEC (9.4-11.6)
[2022-03-28 11:01] LABS: COVID AG,FIA SOURCE NASAL SWAB
[2022-03-28 11:04] LABS: APPEARANCE,URINE HAZY (CLEAR); BILIRUBIN,URINE NEGATIVE (NEGATIVE); GLUCOSE, URINE (UA) NEGATIVE (NEGATIVE); KETONES,URINE TRACE mg/dL (NEGATIVE); LEUKOCYTE ESTERASE ,URINE LARGE (NEGATIVE); NITRATE,URINE POSITIVE (NEGATIVE); OCCULT BLOOD,URINE LARGE (NEGATIVE); PH,URINE 5.5 (5.0-8.0); PROTEIN,URINE 30-70 mg/dL (NEGATIVE); SPECIFIC GRAVITIY, URINE 1.022 (1.003-1.030); UROBILINOGEN,URINE <=1.0 mg/dL (<=1.0)
[2022-03-28 11:14] LABS: AMPHET/METH SCREEN,URINE NEGATIVE (NEGATIVE); BARBITURATE SCREEN, URINE NEGATIVE (NEGATIVE); BENZODIAZEPINES SCREEN,URINE NEGATIVE (NEGATIVE); CANNABINOID SCREEN,URINE NEGATIVE (NEGATIVE); COCAINE SCREEN,URINE NEGATIVE (NEGATIVE); METHADONE SCREEN, URINE NEGATIVE (NEGATIVE); OPIATE SCREEN,URINE NEGATIVE (NEGATIVE)
[2022-03-28 11:17] LABS: PHENCYCLIDINE SCREEN,URINE NEGATIVE (NEGATIVE)
[2022-03-28 11:19] LABS: BACTERIA,URINE Many /HPF (None Seen); RBC,URINE 26-50 /HPF (0-2); WBC,URINE 26-50 /HPF (0-5)
[2022-03-28 11:20] LABS: INFLUENZA TYPE A NEGATIVE FOR TYPE A (NEGATIVE); INFLUENZA TYPE B NEGATIVE FOR TYPE B (NEGATIVE); YEAST,URINE Moderate /HPF (None Seen)
[2022-03-28 11:21] LABS: GLUCOMETER DEV NAME(LOC) ERT.5; GLUCOSE,POINT OF CARE 206 MG/DL (70-110)
[2022-03-28] MEDS ORDERED: ACET-2247 PO (11:37)
[2022-03-28] MEDS ORDERED: LOSA-382 PO (11:37)
[2022-03-28] MEDS ORDERED: SODIUM CHLORIDE 0.9% 1,700 ML IV ONE (11:45)
[2022-03-28] MEDS ORDERED: AZITHROMYCIN 500 MG/NS 250 ML IV ONE (11:45)
[2022-03-28] MEDS ORDERED: CefTRIAXone 1 GM/DEXTROSE 50 ML IV ONE (11:45)
[2022-03-28] MEDS ORDERED: ONDANSETRON HCL 4 MG/2 ML VIAL IVP PRN (12:45)
[2022-03-28] MEDS ORDERED: BISACODYL 10 MG RECTAL RECTAL SUPPOSITORY PR PRN (12:45)
[2022-03-28] MEDS ORDERED: SODIUM CHLORIDE 0.9% 1,000 ML IV ONE (12:45)
[2022-03-28] MEDS ORDERED: DEXTROSE 50%-WATER 25 GM/50 ML SYRINGE IVP PRN (12:45)
[2022-03-28] MEDS ORDERED: ACETAMINOPHEN 325 MG TABLET PO PRN (12:45)
[2022-03-28] MEDS ORDERED: LEVOTHYROXINE SODIUM 100 MCG VIAL IVP ONE (12:45)
[2022-03-28] MEDS: HEPARIN SODIUM,PORCINE 5,000 UNITS/ML VIAL SQ SCH (15:32)
[2022-03-28 16:50] LABS: GLUCOMETER DEV NAME(LOC) ERT.5; GLUCOSE,POINT OF CARE 142 MG/DL (70-110)
[2022-03-28 21:02] VITALS: BP 116/76
[2022-03-29 00:09] VITALS: BP 161/105
[2022-03-29 04:10] VITALS: BP 155/100
[2022-03-29 07:28] VITALS: BP 155/67
[2022-03-29] MEDS: PANTOPRAZOLE SODIUM 40 MG/VIAL IVP SCH (09:03)
[2022-03-29] MEDS: HEPARIN SODIUM,PORCINE 5,000 UNITS/ML VIAL SQ SCH ×4 (09:03→23:25)
[2022-03-29 10:01] LABS: GLUCOMETER DEV NAME(LOC) 5N.1C; GLUCOSE,POINT OF CARE 118 MG/DL (70-110)
[2022-03-29] MEDS ORDERED: CloNIDine HCL 0.1 MG TABLET PO PRN (11:15)
[2022-03-29 11:28] VITALS: BP 184/83
[2022-03-29] MEDS: CefTRIAXone 1 GM/DEXTROSE 50 ML IV SCH (11:31)
[2022-03-29] MEDS: AmLODIPine BESYLATE 10 MG TABLET PO SCH (11:32)
[2022-03-29] MEDS: INSULIN LISPRO 100 UNITS/ML SQ PRN (12:04)
[2022-03-29 15:50] VITALS: BP 153/93
[2022-03-29 16:51] LABS: GLUCOMETER DEV NAME(LOC) 5S.1B; GLUCOSE,POINT OF CARE 160 MG/DL (70-110)
[2022-03-29 19:27] VITALS: BP 173/78
[2022-03-29] MEDS: QUEtiapine FUMARATE 25 MG TABLET PO SCH (20:23)
[2022-03-29] MEDS: HydrALAZINE HCL 20 MG/ML VIAL IVP PRN (20:23)
[2022-03-29 20:26] LABS: GLUCOMETER DEV NAME(LOC) 5N.1C; GLUCOSE,POINT OF CARE 140 MG/DL (70-110)
[2022-03-29 20:26] LABS: GLUCOMETER DEV NAME(LOC) 5N.1C; GLUCOSE,POINT OF CARE 108 MG/DL (70-110)
[2022-03-30] VITALS: BP 112/53
[2022-03-30 04:00] VITALS: BP 110/56
[2022-03-30] MEDS: LEVOTHYROXINE SODIUM 100 MCG TABLET PO SCH (06:30)
[2022-03-30 07:44] VITALS: BP 170/94
[2022-03-30] MEDS: HEPARIN SODIUM,PORCINE 5,000 UNITS/ML VIAL SQ SCH ×3 (08:27→23:09)
[2022-03-30] MEDS: AmLODIPine BESYLATE 10 MG TABLET PO SCH ×2 (08:28→09:00)
[2022-03-30] MEDS: PANTOPRAZOLE SODIUM 40 MG/VIAL IVP SCH (08:28)
[2022-03-30] MEDS: QUEtiapine FUMARATE 25 MG TABLET PO SCH ×2 (08:28→21:00)
[2022-03-30] MEDS: HydrALAZINE HCL 20 MG/ML VIAL IVP PRN (08:40)
[2022-03-30 09:06] LABS: GLUCOMETER DEV NAME(LOC) 5N.1C; GLUCOSE,POINT OF CARE 121 MG/DL (70-110)
[2022-03-30 11:13] VITALS: BP 141/73
[2022-03-30] MEDS: CefTRIAXone 1 GM/DEXTROSE 50 ML IV SCH (12:25)
[2022-03-30 12:46] LABS: GLUCOMETER DEV NAME(LOC) 5N.1C; GLUCOSE,POINT OF CARE 153 MG/DL (70-110)
[2022-03-30 15:08] VITALS: BP 125/53
[2022-03-30 18:16] LABS: GLUCOMETER DEV NAME(LOC) 5N.1C; GLUCOSE,POINT OF CARE 118 MG/DL (70-110)
[2022-03-30 21:00] VITALS: BP 146/84
[2022-03-30 22:57] LABS: GLUCOMETER DEV NAME(LOC) 5N.1C; GLUCOSE,POINT OF CARE 123 MG/DL (70-110)
[2022-03-31 00:04] VITALS: BP 137/77
[2022-03-31 04:45] VITALS: BP 144/77
[2022-03-31] MEDS: LEVOTHYROXINE SODIUM 100 MCG TABLET PO SCH (05:43)
[2022-03-31 06:46] LABS: GLUCOMETER DEV NAME(LOC) 5N.1C; GLUCOSE,POINT OF CARE 109 MG/DL (70-110)
[2022-03-31 07:41] VITALS: BP 160/86
[2022-03-31] MEDS: HEPARIN SODIUM,PORCINE 5,000 UNITS/ML VIAL SQ SCH ×2 (08:02→16:56)
[2022-03-31] MEDS: AmLODIPine BESYLATE 10 MG TABLET PO SCH (08:02)
[2022-03-31] MEDS: PANTOPRAZOLE SODIUM 40 MG/VIAL IVP SCH (08:02)
[2022-03-31] MEDS: QUEtiapine FUMARATE 25 MG TABLET PO SCH (08:02)
[2022-03-31 10:59] VITALS: BP 118/73
[2022-03-31] MEDS: CefTRIAXone 1 GM/DEXTROSE 50 ML IV SCH (11:27)
[2022-03-31] MEDS ORDERED: ASPI-1450 PO (11:46)
[2022-03-31] MEDS ORDERED: LEVO100 PO (11:46)
[2022-03-31] MEDS ORDERED: CEPH250S56 PO (11:46)
[2022-03-31] MEDS ORDERED: AMLO-258 PO (11:46)
[2022-03-31] MEDS ORDERED: QUET200T30 PO ×2 (11:46)
[2022-03-31] MEDS ORDERED: METO25XL PO (11:46)
[2022-03-31] MEDS: INSULIN LISPRO 100 UNITS/ML SQ PRN (12:02)
[2022-03-31 12:06] VITALS: BP 143/63
[2022-03-31 15:00] VITALS: BP 126/68
[2022-03-31 17:26] LABS: GLUCOMETER DEV NAME(LOC) 5S.1B; GLUCOSE,POINT OF CARE 189 MG/DL (70-110)
[2022-03-31] MEDS ORDERED: QUEtiapine FUMARATE 200 MG TABLET PO SCH (21:00)
[2022-04-01 07:02] LABS: GLUCOMETER DEV NAME(LOC) 5N.1C; GLUCOSE,POINT OF CARE 93 MG/DL (70-110)
[2022-04-01] MEDS ORDERED: QUEtiapine FUMARATE 200 MG TABLET PO SCH (09:00)
== END 2022-03-31 19:10 | disposition home health service (06) | DRG 640 ==
LOC: EMS 08:50 → 5S 18:48
PROVIDERS: ADMIT Internal Medicine; ATTEND Internal Medicine
DX: E86.0 Dehydration (principal); G93.41 Metabolic encephalopathy; N39.0 Urinary tract infection, site not specified; Z68.1 Body mass index [BMI] 19.9 or less, adult; R62.7 Adult failure to thrive; E03.9 Hypothyroidism, unspecified; E11.9 Type 2 diabetes mellitus without complications; Z20.822 Contact with and (suspected) exposure to COVID-19; Z66 Do not resuscitate; F03.90 Unspecified dementia, unspecified severity, without behavioral disturbance, psychotic disturbance, mood disturbance, and anxiety; F20.9 Schizophrenia, unspecified; I10 Essential (primary) hypertension; I25.10 Atherosclerotic heart disease of native coronary artery without angina pectoris; N28.9 Disorder of kidney and ureter, unspecified; Z79.82 Long term (current) use of aspirin; Z79.899 Other long term (current) drug therapy; Z82.49 Family history of ischemic heart disease and other diseases of the circulatory system; Z83.3 Family history of diabetes mellitus; Z86.73 Personal history of transient ischemic attack (TIA), and cerebral infarction without residual deficits; Z87.440 Personal history of urinary (tract) infections; Z95.1 Presence of aortocoronary bypass graft; Z98.2 Presence of cerebrospinal fluid drainage device; Z88.5 Allergy status to narcotic agent; Z79.4 Long term (current) use of insulin
CPT/HCPCS: 51702; 70450; 71045; 80053; 81001; 82140; 82550; 82962; 83605; 83880; 84443; 84484; 85025; 85610; 85730; 87040; 87086; 87186; 87804; 92526; 92610; 93005; 99285; C9113; J0360; J0456; J0696; J1644; J3490; J7030; 36415-L1; 36415-TC

== ENCOUNTER 2022-05-05 06:58 | Inpatient (IN) | payer MEDICARE ==
[~2022-05-05] VITALS: Ht 165.1 cm; Wt 53.4 kg
[~2022-05-05 06:58] MED LIST changes: -ACET-3207 PO; +AMLO-258 PO; -ATOR40TA28 PO; -BISA-72 PO; -CEPH-558 PO; +CEPH250S56 PO; -CLOP75TA60 PO; -DOCU-385 PO; -INSLAN SQ; +LEVO100 PO; -LEVO137T24 PO; -LOSA-381 PO; -MAGN-169 PO; -MEMA5 PO; -MULT-700 PO; -NIFE-141 PO; -OMEP20 PO; -QUET200T PO; +QUET200T30 PO
[2022-05-05] MEDS ORDERED: 0.9% SODIUM CHLORIDE 10 ML SYRINGE IVP PRN (07:45)
[2022-05-05 08:19] LABS: EOSINOPHILS % (AUTO) 1.4 % (1.0-6.0); HEMATOCRIT 42.3 % (36-46); HEMOGLOBIN 14.1 g/dL (12.0-16.0); LYMPHOCYTES # (AUTO) 1.4 K/uL (1.0-4.8); LYMPHOCYTES % (AUTO) 23.8 % (22.0-44.0); MEAN CORPUSCULAR HEMOGLOBIN 32.2 pg (26.0-34.0); MEAN CORPUSCULAR HGB CONC 33.5 G/dL (31.0-37.0); MEAN CORPUSCULAR VOLUME 96 fL (80-100); MONOCYTES # (AUTO) 0.4 K/uL (0.1-1.0); MONOCYTES % (AUTO) 6.8 % (2.0-9.0); PLATELET COUNT (AUTO) 203 K/uL (150-450); RED BLOOD CELL COUNT(AUTO) 4.39 MIL/uL (4.00-5.20); RED CELL DISTRIBUTION WIDTH 15.4 % (11.5-14.5)
[2022-05-05 08:25] LABS: COVID AG,FIA SOURCE NASOPHARYNGEAL
[2022-05-05 08:31] LABS: ANION GAP 6 mmol/L (8-16); CALCIUM, TOTAL 9.5 mg/dL (8.8-10.5); CARBON DIOXIDE 30 mmol/L (22-29); CHLORIDE 102 mmol/L (98-107); GLUCOSE,RANDOM 195 mg/dL (70-110); POTASSIUM 4.1 mmol/L (3.5-5.1); SODIUM SERUM 138 mmol/L (136-145); UREA NITROGEN, BLOOD 24 mg/dL (7-18)
[2022-05-05 08:32] LABS: GLOMERULAR FILTR. RATE CALC 55 mL/min (>60)
[2022-05-05 08:35] LABS: PROTHROMBIN TIME 10.5 SEC (9.4-11.6)
[2022-05-05 08:41] LABS: LACTIC ACID 1.6 mmol/L (0.4-2.0)
[2022-05-05 08:45] LABS: ALANINE AMINOTRANSFERASE 22 U/L (12-78); ALBUMIN 3.8 g/dL (3.4-5.0); ALKALINE PHOSPHATASE 167 U/L (46-116); ASPARTATE AMINOTRANSFERASE 18 U/L (15-37); BILIRUBIN,TOTAL 0.6 mg/dL (0.1-1.0); LIPASE 94 U/L (73-393); PHOSPHORUS 3.8 mg/dL (2.5-4.9); THYROID STIMULATING HORMONE 8.15 uIU/mL (0.36-3.74)
[2022-05-05 08:48] LABS: B-TYPE NATRIURETIC PEPTIDE 222 pg/mL (0-100)
[2022-05-05 10:38] LABS: APPEARANCE,URINE HAZY (CLEAR); BILIRUBIN,URINE NEGATIVE (NEGATIVE); GLUCOSE, URINE (UA) NEGATIVE (NEGATIVE); KETONES,URINE NEGATIVE (NEGATIVE); LEUKOCYTE ESTERASE ,URINE MODERATE (NEGATIVE); NITRATE,URINE POSITIVE (NEGATIVE); OCCULT BLOOD,URINE NEGATIVE (NEGATIVE); PH,URINE 5.5 (5.0-8.0); PROTEIN,URINE TRACE mg/dL (NEGATIVE); SPECIFIC GRAVITIY, URINE 1.017 (1.003-1.030); UROBILINOGEN,URINE <=1.0 mg/dL (<=1.0)
[2022-05-05 10:52] LABS: AMPHET/METH SCREEN,URINE NEGATIVE (NEGATIVE); BARBITURATE SCREEN, URINE NEGATIVE (NEGATIVE); BENZODIAZEPINES SCREEN,URINE POSITIVE (NEGATIVE); CANNABINOID SCREEN,URINE NEGATIVE (NEGATIVE); COCAINE SCREEN,URINE NEGATIVE (NEGATIVE); METHADONE SCREEN, URINE NEGATIVE (NEGATIVE); OPIATE SCREEN,URINE NEGATIVE (NEGATIVE)
[2022-05-05 11:03] LABS: BACTERIA,URINE Many /HPF (None Seen); RBC,URINE None Seen /HPF (0-2); SQUAMOUS EPITHELIAL CELL,UR Many /LPF (None Seen)
[2022-05-05 11:13] LABS: PHENCYCLIDINE SCREEN,URINE NEGATIVE (NEGATIVE)
[2022-05-05] MEDS ORDERED: INSLAN SQ (12:14)
[2022-05-05] MEDS ORDERED: CefTRIAXone 1 GM/DEXTROSE 50 ML IV ONE (12:15)
[2022-05-05 14:37] VITALS: BP 132/71
[2022-05-05] MEDS ORDERED: ZOLPIDEM TARTRATE 5 MG TABLET PO PRN (15:15)
[2022-05-05] MEDS ORDERED: ONDANSETRON HCL 4 MG/2 ML VIAL IVP PRN (15:15)
[2022-05-05] MEDS ORDERED: *CLINICAL-CEFTRIAXONE DOSING CLINICAL ONE (15:15)
[2022-05-05] MEDS ORDERED: MAGNESIUM HYDROXIDE SUSPENSION 30 ML UDCUP PO PRN (15:15)
[2022-05-05] MEDS ORDERED: ACETAMINOPHEN 325 MG TABLET PO PRN (15:15)
[2022-05-05] MEDS ORDERED: BISACODYL 10 MG RECTAL RECTAL SUPPOSITORY PR PRN (15:15)
[2022-05-05] MEDS ORDERED: MAGNESIUM SULFATE 2 GM, MVI, ADULT NO.1 WITH VIT K 10 ML, THIAMINE 100 MG, FOLIC ACID 1... IV ONE ×5 (16:00)
[2022-05-05] MEDS ORDERED: SODIUM CHLORIDE 0.9% 250 ML IV ONE (16:51)
[2022-05-05 17:00] VITALS: BP 139/117
[2022-05-05] MEDS: HEPARIN SODIUM,PORCINE 5,000 UNITS/ML VIAL SQ SCH ×2 (17:01→23:34)
[2022-05-05 20:27] LABS: GLUCOMETER DEV NAME(LOC) 5N.1C; GLUCOSE,POINT OF CARE 115 MG/DL (70-110)
[2022-05-05] MEDS: DOCUSATE SODIUM 100 MG CAPSULE PO SCH (20:35)
[2022-05-05] MEDS: INSULIN GLARGINE,HUM.REC.ANLOG 100 UNITS/ML SQ SCH (20:37)
[2022-05-05 20:40] VITALS: BP 126/90
[2022-05-06 00:43] VITALS: BP 128/86
[2022-05-06 04:25] VITALS: BP 170/127
[2022-05-06] MEDS: LEVOTHYROXINE SODIUM 100 MCG TABLET PO SCH (05:23)
[2022-05-06 05:24] VITALS: BP 139/102
[2022-05-06 06:46] LABS: BASOPHILS % (AUTO) 1.1 % (0.0-2.0); EOSINOPHILS % (AUTO) 1.3 % (1.0-6.0); HEMATOCRIT 42.8 % (36-46); HEMOGLOBIN 14.2 g/dL (12.0-16.0); LYMPHOCYTES # (AUTO) 1.5 K/uL (1.0-4.8); MEAN CORPUSCULAR HEMOGLOBIN 31.7 pg (26.0-34.0); MEAN CORPUSCULAR HGB CONC 33.2 G/dL (31.0-37.0); MEAN CORPUSCULAR VOLUME 96 fL (80-100); MONOCYTES # (AUTO) 0.4 K/uL (0.1-1.0); MONOCYTES % (AUTO) 6.1 % (2.0-9.0); NEUTROPHILS # (AUTO) 4.8 K/uL (1.8-7.7); NEUTROPHILS % (AUTO) 69.5 % (40.0-70.0); PLATELET COUNT (AUTO) 215 K/uL (150-450); RED BLOOD CELL COUNT(AUTO) 4.48 MIL/uL (4.00-5.20); RED CELL DISTRIBUTION WIDTH 15.1 % (11.5-14.5)
[2022-05-06 07:06] LABS: ANION GAP 13 mmol/L (8-16); CALCIUM, TOTAL 9.7 mg/dL (8.8-10.5); CARBON DIOXIDE 23 mmol/L (22-29); CHLORIDE 104 mmol/L (98-107); CREATININE 0.66 mg/dL (0.60-1.30); GLOMERULAR FILTR. RATE CALC > 60 mL/min (>60); GLUCOSE,RANDOM 135 mg/dL (70-110); POTASSIUM 3.7 mmol/L (3.5-5.1); SODIUM SERUM 140 mmol/L (136-145); UREA NITROGEN, BLOOD 16 mg/dL (7-18)
[2022-05-06 07:35] VITALS: BP 178/89
[2022-05-06] MEDS: CHOLECALCIFEROL (VIT D3) 1,000 UNITS [25 MCG] TABLET PO SCH (08:12)
[2022-05-06] MEDS: METOPROLOL SUCCINATE 25 MG ER TABLET PO SCH ×2 (08:12→08:27)
[2022-05-06] MEDS: PANTOPRAZOLE SODIUM 40 MG DR TABLET PO SCH (08:12)
[2022-05-06] MEDS: ASPIRIN 81 MG CHEWABLE TABLET PO SCH ×2 (08:13→08:27)
[2022-05-06] MEDS: DOCUSATE SODIUM 100 MG CAPSULE PO SCH ×3 (08:13→21:00)
[2022-05-06] MEDS: HEPARIN SODIUM,PORCINE 5,000 UNITS/ML VIAL SQ SCH ×3 (08:13→23:54)
[2022-05-06] MEDS: CefTRIAXone 1 GM/DEXTROSE 50 ML IV SCH (11:21)
[2022-05-06] MEDS ORDERED: MEMA5 PO (12:31)
[2022-05-06] MEDS ORDERED: RISP3TAB35 PO (12:31)
[2022-05-06] MEDS ORDERED: ALPR-705 PO (12:31)
[2022-05-06] MEDS ORDERED: RISP0.5T39 PO ×2 (12:56→13:00)
[2022-05-06] MEDS: QUEtiapine FUMARATE 200 MG TABLET PO SCH ×2 (13:00→21:00)
[2022-05-06] MEDS: RisperiDONE 0.5 MG TABLET PO SCH ×2 (13:00→21:00)
[2022-05-06] MEDS: MEMANTINE HCL 5 MG TABLET PO SCH ×2 (13:00→21:00)
[2022-05-06 18:46] VITALS: BP 91/35
[2022-05-06 20:23] VITALS: BP 122/55
[2022-05-06 22:21] LABS: GLUCOMETER DEV NAME(LOC) 5N.1C; GLUCOSE,POINT OF CARE 96 MG/DL (70-110)
[2022-05-06] MEDS: INSULIN GLARGINE,HUM.REC.ANLOG 100 UNITS/ML SQ SCH (22:22)
[2022-05-06] MEDS: 1: MAGNESIUM SULFATE 2 GM, MVI, ADULT NO.1 WITH VIT K 10 ML, THIAMINE 100 MG, FOLIC ACID IV SCH ×5 (22:30)
[2022-05-07 00:05] VITALS: BP 120/66
[2022-05-07] MEDS ORDERED: LABETALOL HCL 5 MG/ML 20 ML VIAL IVP ONE (05:30)
[2022-05-07 05:40] VITALS: BP 198/97
[2022-05-07 06:06] LABS: GLUCOMETER DEV NAME(LOC) 5N.1C; GLUCOSE,POINT OF CARE 86 MG/DL (70-110)
[2022-05-07] MEDS: LEVOTHYROXINE SODIUM 100 MCG TABLET PO SCH (06:30)
[2022-05-07 06:31] LABS: BASOPHILS % (AUTO) 0.9 % (0.0-2.0); EOSINOPHILS % (AUTO) 1.4 % (1.0-6.0); HEMATOCRIT 43.1 % (36-46); HEMOGLOBIN 14.1 g/dL (12.0-16.0); LYMPHOCYTES # (AUTO) 1.6 K/uL (1.0-4.8); LYMPHOCYTES % (AUTO) 25.2 % (22.0-44.0); MEAN CORPUSCULAR HEMOGLOBIN 31.6 pg (26.0-34.0); MEAN CORPUSCULAR HGB CONC 32.8 G/dL (31.0-37.0); MEAN CORPUSCULAR VOLUME 96 fL (80-100); MONOCYTES # (AUTO) 0.5 K/uL (0.1-1.0); MONOCYTES % (AUTO) 7.3 % (2.0-9.0); NEUTROPHILS # (AUTO) 4.1 K/uL (1.8-7.7); NEUTROPHILS % (AUTO) 65.2 % (40.0-70.0); PLATELET COUNT (AUTO) 213 K/uL (150-450); RED BLOOD CELL COUNT(AUTO) 4.48 MIL/uL (4.00-5.20); RED CELL DISTRIBUTION WIDTH 15.6 % (11.5-14.5)
[2022-05-07 06:47] LABS: ANION GAP 12 mmol/L (8-16); CALCIUM, TOTAL 9.5 mg/dL (8.8-10.5); CARBON DIOXIDE 24 mmol/L (22-29); CHLORIDE 106 mmol/L (98-107); CREATININE 0.77 mg/dL (0.60-1.30); GLOMERULAR FILTR. RATE CALC > 60 mL/min (>60); GLUCOSE,RANDOM 91 mg/dL (70-110); SODIUM SERUM 142 mmol/L (136-145); UREA NITROGEN, BLOOD 19 mg/dL (7-18)
[2022-05-07 07:19] VITALS: BP 134/88
[2022-05-07] MEDS: HEPARIN SODIUM,PORCINE 5,000 UNITS/ML VIAL SQ SCH ×2 (08:26→16:00)
[2022-05-07] MEDS: 1: MAGNESIUM SULFATE 2 GM, MVI, ADULT NO.1 WITH VIT K 10 ML, THIAMINE 100 MG, FOLIC ACID IV SCH ×10 (08:26→18:13)
[2022-05-07] MEDS: MEMANTINE HCL 5 MG TABLET PO SCH ×2 (09:00→21:00)
[2022-05-07] MEDS: CHOLECALCIFEROL (VIT D3) 1,000 UNITS [25 MCG] TABLET PO SCH (09:00)
[2022-05-07] MEDS: RisperiDONE 0.5 MG TABLET PO SCH ×2 (09:00→21:00)
[2022-05-07] MEDS: DOCUSATE SODIUM 100 MG CAPSULE PO SCH ×2 (09:00→21:00)
[2022-05-07] MEDS: ASPIRIN 81 MG CHEWABLE TABLET PO SCH (09:00)
[2022-05-07] MEDS: QUEtiapine FUMARATE 200 MG TABLET PO SCH ×2 (09:00→21:00)
[2022-05-07] MEDS: PANTOPRAZOLE SODIUM 40 MG DR TABLET PO SCH (09:00)
[2022-05-07] MEDS: LABETALOL HCL 100 MG TABLET PO SCH ×2 (11:00→21:00)
[2022-05-07 11:39] VITALS: BP 142/78
[2022-05-07] MEDS: CefTRIAXone 1 GM/DEXTROSE 50 ML IV SCH (13:56)
[2022-05-07 15:59] VITALS: BP 138/69
[2022-05-07 19:38] VITALS: BP 126/70
[2022-05-07] MEDS: INSULIN GLARGINE,HUM.REC.ANLOG 100 UNITS/ML SQ SCH (20:45)
[2022-05-08] MEDS: HEPARIN SODIUM,PORCINE 5,000 UNITS/ML VIAL SQ SCH ×3 (00:27→16:00)
[2022-05-08 00:28] VITALS: BP 113/72
[2022-05-08] MEDS: 1: MAGNESIUM SULFATE 2 GM, MVI, ADULT NO.1 WITH VIT K 10 ML, THIAMINE 100 MG, FOLIC ACID IV SCH ×16 (04:26→19:10)
[2022-05-08 05:45] VITALS: BP 128/78
[2022-05-08] MEDS: LEVOTHYROXINE SODIUM 100 MCG TABLET PO SCH (06:30)
[2022-05-08 07:09] LABS: EOSINOPHILS % (AUTO) 1.9 % (1.0-6.0); HEMATOCRIT 40.4 % (36-46); HEMOGLOBIN 13.2 g/dL (12.0-16.0); LYMPHOCYTES # (AUTO) 1.7 K/uL (1.0-4.8); LYMPHOCYTES % (AUTO) 23.7 % (22.0-44.0); MEAN CORPUSCULAR HEMOGLOBIN 31.5 pg (26.0-34.0); MEAN CORPUSCULAR HGB CONC 32.8 G/dL (31.0-37.0); MEAN CORPUSCULAR VOLUME 96 fL (80-100); MONOCYTES # (AUTO) 0.6 K/uL (0.1-1.0); MONOCYTES % (AUTO) 9.1 % (2.0-9.0); NEUTROPHILS # (AUTO) 4.5 K/uL (1.8-7.7); NEUTROPHILS % (AUTO) 64.3 % (40.0-70.0); PLATELET COUNT (AUTO) 210 K/uL (150-450); RED BLOOD CELL COUNT(AUTO) 4.21 MIL/uL (4.00-5.20); RED CELL DISTRIBUTION WIDTH 14.9 % (11.5-14.5)
[2022-05-08 07:11] LABS: GLUCOMETER DEV NAME(LOC) 5N.1C; GLUCOSE,POINT OF CARE 98 MG/DL (70-110)
[2022-05-08 07:11] LABS: GLUCOMETER DEV NAME(LOC) 5N.1C; GLUCOSE,POINT OF CARE 72 MG/DL (70-110)
[2022-05-08 07:11] LABS: GLUCOMETER DEV NAME(LOC) 5N.1C; GLUCOSE,POINT OF CARE 139 MG/DL (70-110)
[2022-05-08 07:34] LABS: ANION GAP 11 mmol/L (8-16); CALCIUM, TOTAL 9.1 mg/dL (8.8-10.5); CARBON DIOXIDE 23 mmol/L (22-29); CHLORIDE 108 mmol/L (98-107); CREATININE 0.69 mg/dL (0.60-1.30); GLUCOSE,RANDOM 73 mg/dL (70-110); POTASSIUM 3.6 mmol/L (3.5-5.1); SODIUM SERUM 142 mmol/L (136-145); UREA NITROGEN, BLOOD 16 mg/dL (7-18)
[2022-05-08 07:37] LABS: GLOMERULAR FILTR. RATE CALC > 60 mL/min (>60)
[2022-05-08 08:20] VITALS: BP 164/63
[2022-05-08] MEDS: PANTOPRAZOLE SODIUM 40 MG DR TABLET PO SCH (09:00)
[2022-05-08] MEDS: DOCUSATE SODIUM 100 MG CAPSULE PO SCH ×2 (09:00→21:00)
[2022-05-08] MEDS: CHOLECALCIFEROL (VIT D3) 1,000 UNITS [25 MCG] TABLET PO SCH (09:00)
[2022-05-08] MEDS: MEMANTINE HCL 5 MG TABLET PO SCH ×2 (09:00→21:00)
[2022-05-08] MEDS: LABETALOL HCL 100 MG TABLET PO SCH ×2 (09:00→21:00)
[2022-05-08] MEDS: QUEtiapine FUMARATE 200 MG TABLET PO SCH ×2 (09:00→21:00)
[2022-05-08] MEDS: ASPIRIN 81 MG CHEWABLE TABLET PO SCH (09:00)
[2022-05-08] MEDS: RisperiDONE 0.5 MG TABLET PO SCH ×2 (09:00→21:00)
[2022-05-08] MEDS: CefTRIAXone 1 GM/DEXTROSE 50 ML IV SCH (12:45)
[2022-05-08 12:46] VITALS: BP 128/69
[2022-05-08 16:16] VITALS: BP 137/79
[2022-05-08] MEDS ORDERED: DEXTROSE 50%-WATER 25 GM/50 ML SYRINGE IVP ONE ×2 (18:30→19:00)
[2022-05-08 19:26] LABS: GLUCOMETER DEV NAME(LOC) 5N.1C; GLUCOSE,POINT OF CARE 64 MG/DL (70-110)
[2022-05-08 19:26] LABS: GLUCOMETER DEV NAME(LOC) 5N.1C; GLUCOSE,POINT OF CARE 76 MG/DL (70-110)
[2022-05-08] MEDS: INSULIN GLARGINE,HUM.REC.ANLOG 100 UNITS/ML SQ SCH (20:35)
[2022-05-08 20:44] VITALS: BP 110/58
[2022-05-08 21:06] LABS: GLUCOMETER DEV NAME(LOC) 5N.1C; GLUCOSE,POINT OF CARE 138 MG/DL (70-110)
[2022-05-09 00:13] VITALS: BP 105/55
[2022-05-09] MEDS: 1: MAGNESIUM SULFATE 2 GM, MVI, ADULT NO.1 WITH VIT K 10 ML, THIAMINE 100 MG, FOLIC ACID IV SCH ×12 (04:56→14:04)
[2022-05-09 05:20] VITALS: BP 108/59
[2022-05-09 06:16] LABS: GLUCOMETER DEV NAME(LOC) 5S.1B; GLUCOSE,POINT OF CARE 129 MG/DL (70-110)
[2022-05-09] MEDS: LEVOTHYROXINE SODIUM 100 MCG TABLET PO SCH (06:30)
[2022-05-09 07:06] LABS: GLUCOMETER DEV NAME(LOC) 5S.1B; GLUCOSE,POINT OF CARE 175 MG/DL (70-110)
[2022-05-09 08:00] VITALS: BP 135/99
[2022-05-09] MEDS: HEPARIN SODIUM,PORCINE 5,000 UNITS/ML VIAL SQ SCH ×3 (08:00→17:04)
[2022-05-09] MEDS ORDERED: EPINEPHrine 1:10,000 [1 MG/10 ML] SYRINGE ONE (08:22)
[2022-05-09] MEDS ORDERED: SODIUM CHLORIDE 0.9% 1,000 ML ONE (08:22)
[2022-05-09 12:00] VITALS: BP 138/78
[2022-05-09] MEDS: ASPIRIN 81 MG CHEWABLE TABLET PO SCH (13:57)
[2022-05-09] MEDS: DOCUSATE SODIUM 100 MG CAPSULE PO SCH ×2 (13:57→21:39)
[2022-05-09] MEDS: MEMANTINE HCL 5 MG TABLET PO SCH ×2 (13:57→21:38)
[2022-05-09] MEDS: CHOLECALCIFEROL (VIT D3) 1,000 UNITS [25 MCG] TABLET PO SCH (13:58)
[2022-05-09] MEDS: QUEtiapine FUMARATE 200 MG TABLET PO SCH ×2 (13:58→21:39)
[2022-05-09] MEDS: PANTOPRAZOLE SODIUM 40 MG DR TABLET PO SCH (13:58)
[2022-05-09] MEDS: LABETALOL HCL 100 MG TABLET PO SCH ×2 (13:58→21:38)
[2022-05-09] MEDS: RisperiDONE 0.5 MG TABLET PO SCH ×2 (13:58→21:38)
[2022-05-09] MEDS: CefTRIAXone 1 GM/DEXTROSE 50 ML IV SCH (14:03)
[2022-05-09 16:00] VITALS: BP 101/62
[2022-05-09] MEDS ORDERED: DEXTROSE 50%-WATER 25 GM/50 ML SYRINGE IVP PRN (17:00)
[2022-05-09 20:18] VITALS: BP 149/74
[2022-05-09] MEDS: INSULIN LISPRO 100 UNITS/ML SQ PRN (22:06)
[2022-05-09] MEDS: INSULIN GLARGINE,HUM.REC.ANLOG 100 UNITS/ML SQ SCH (22:06)
[2022-05-09 22:16] LABS: GLUCOMETER DEV NAME(LOC) 5S.1B; GLUCOSE,POINT OF CARE 209 MG/DL (70-110)
[2022-05-09 22:16] LABS: GLUCOMETER DEV NAME(LOC) 5S.1B; GLUCOSE,POINT OF CARE 200 MG/DL (70-110)
[2022-05-09 22:16] LABS: GLUCOMETER DEV NAME(LOC) 5S.1B; GLUCOSE,POINT OF CARE 217 MG/DL (70-110)
[2022-05-10 00:10] VITALS: BP 135/72
[2022-05-10] MEDS: HEPARIN SODIUM,PORCINE 5,000 UNITS/ML VIAL SQ SCH ×3 (00:53→16:00)
[2022-05-10 04:37] VITALS: BP 130/70
[2022-05-10] MEDS: INSULIN LISPRO 100 UNITS/ML SQ PRN ×2 (06:15→20:33)
[2022-05-10] MEDS: LEVOTHYROXINE SODIUM 100 MCG TABLET PO SCH (06:19)
[2022-05-10 06:27] LABS: GLUCOMETER DEV NAME(LOC) 5N.1C; GLUCOSE,POINT OF CARE 146 MG/DL (70-110)
[2022-05-10 08:23] VITALS: BP 113/51
[2022-05-10] MEDS: LABETALOL HCL 100 MG TABLET PO SCH ×2 (08:49→20:34)
[2022-05-10] MEDS: PANTOPRAZOLE SODIUM 40 MG DR TABLET PO SCH (08:49)
[2022-05-10] MEDS: CHOLECALCIFEROL (VIT D3) 1,000 UNITS [25 MCG] TABLET PO SCH (08:49)
[2022-05-10] MEDS: DOCUSATE SODIUM 100 MG CAPSULE PO SCH ×2 (08:49→20:21)
[2022-05-10] MEDS: MEMANTINE HCL 5 MG TABLET PO SCH ×2 (08:50→20:22)
[2022-05-10] MEDS: RisperiDONE 0.5 MG TABLET PO SCH ×2 (08:50→20:22)
[2022-05-10] MEDS: ASPIRIN 81 MG CHEWABLE TABLET PO SCH (08:50)
[2022-05-10] MEDS: QUEtiapine FUMARATE 200 MG TABLET PO SCH ×2 (09:19→20:22)
[2022-05-10] MEDS ORDERED: CEPH-558 PO (09:51)
[2022-05-10 11:45] VITALS: BP 111/48
[2022-05-10] MEDS ORDERED: SODIUM CHLORIDE 0.9% 250 ML IV ONE (15:15)
[2022-05-10 16:15] VITALS: BP 111/43
[2022-05-10] MEDS: CefTRIAXone 1 GM/DEXTROSE 50 ML IV SCH (16:24)
[2022-05-10] MEDS: INSULIN GLARGINE,HUM.REC.ANLOG 100 UNITS/ML SQ SCH (20:34)
[2022-05-10 20:42] VITALS: BP 118/59
[2022-05-10 23:31] LABS: GLUCOMETER DEV NAME(LOC) 5S.2B; GLUCOSE,POINT OF CARE 190 MG/DL (70-110)
[2022-05-11 00:24] VITALS: BP 115/58
[2022-05-11] MEDS: ALPRAZolam 0.25 MG TABLET PO PRN ×2 (01:11→22:57)
[2022-05-11 02:06] LABS: GLUCOMETER DEV NAME(LOC) 5S.1B; GLUCOSE,POINT OF CARE 208 MG/DL (70-110)
[2022-05-11 02:06] LABS: GLUCOMETER DEV NAME(LOC) 5S.1B; GLUCOSE,POINT OF CARE 142 MG/DL (70-110)
[2022-05-11 04:40] VITALS: BP 129/88
[2022-05-11] MEDS: INSULIN LISPRO 100 UNITS/ML SQ PRN ×2 (06:29→17:30)
[2022-05-11] MEDS: LEVOTHYROXINE SODIUM 100 MCG TABLET PO SCH (06:32)
[2022-05-11 07:01] LABS: GLUCOMETER DEV NAME(LOC) 5S.2B; GLUCOSE,POINT OF CARE 170 MG/DL (70-110)
[2022-05-11 08:20] VITALS: BP 109/45
[2022-05-11] MEDS: HEPARIN SODIUM,PORCINE 5,000 UNITS/ML VIAL SQ SCH ×4 (08:35→23:59)
[2022-05-11] MEDS: CHOLECALCIFEROL (VIT D3) 1,000 UNITS [25 MCG] TABLET PO SCH (08:35)
[2022-05-11] MEDS: PANTOPRAZOLE SODIUM 40 MG DR TABLET PO SCH (08:36)
[2022-05-11] MEDS: QUEtiapine FUMARATE 100 MG TABLET PO SCH (08:36)
[2022-05-11] MEDS: RisperiDONE 0.5 MG TABLET PO SCH ×2 (08:36→21:17)
[2022-05-11] MEDS: MEMANTINE HCL 5 MG TABLET PO SCH ×2 (08:36→21:17)
[2022-05-11] MEDS: ASPIRIN 81 MG CHEWABLE TABLET PO SCH (08:37)
[2022-05-11] MEDS: DOCUSATE SODIUM 100 MG CAPSULE PO SCH ×2 (08:37→21:17)
[2022-05-11] MEDS: LABETALOL HCL 100 MG TABLET PO SCH ×2 (09:00→21:00)
[2022-05-11 12:00] VITALS: BP 126/55
[2022-05-11] MEDS: CefTRIAXone 1 GM/DEXTROSE 50 ML IV SCH (12:00)
[2022-05-11] MEDS ORDERED: LIDOCAINE/PF 2% 5 ML SYRINGE IVP ONE (12:00)
[2022-05-11] MEDS ORDERED: PROPOFOL 1% 20 ML VIAL IVP ONE (12:00)
[2022-05-11 16:28] VITALS: BP 122/6
[2022-05-11 20:28] VITALS: BP 143/69
[2022-05-11] MEDS: INSULIN GLARGINE,HUM.REC.ANLOG 100 UNITS/ML SQ SCH (21:18)
[2022-05-11] MEDS: QUEtiapine FUMARATE 200 MG TABLET PO SCH (21:18)
[2022-05-12 00:19] VITALS: BP 107/84
[2022-05-12 04:16] VITALS: BP 107/52
[2022-05-12] MEDS: LEVOTHYROXINE SODIUM 100 MCG TABLET PO SCH (05:41)
[2022-05-12 06:36] LABS: GLUCOMETER DEV NAME(LOC) 5N.1C; GLUCOSE,POINT OF CARE 136 MG/DL (70-110)
[2022-05-12 06:37] LABS: GLUCOMETER DEV NAME(LOC) 5S.2B; GLUCOSE,POINT OF CARE 250 MG/DL (70-110)
[2022-05-12 06:37] LABS: GLUCOMETER DEV NAME(LOC) 5S.2B; GLUCOSE,POINT OF CARE 115 MG/DL (70-110)
[2022-05-12] MEDS: INSULIN LISPRO 100 UNITS/ML SQ PRN ×2 (06:41→12:40)
[2022-05-12 07:28] VITALS: BP 128/65
[2022-05-12] MEDS: LABETALOL HCL 100 MG TABLET PO SCH (09:00)
[2022-05-12] MEDS: PANTOPRAZOLE SODIUM 40 MG DR TABLET PO SCH (09:53)
[2022-05-12] MEDS: CHOLECALCIFEROL (VIT D3) 1,000 UNITS [25 MCG] TABLET PO SCH (09:53)
[2022-05-12] MEDS: MEMANTINE HCL 5 MG TABLET PO SCH (09:53)
[2022-05-12] MEDS: DOCUSATE SODIUM 100 MG CAPSULE PO SCH (09:53)
[2022-05-12] MEDS: RisperiDONE 0.5 MG TABLET PO SCH (09:53)
[2022-05-12] MEDS: ASPIRIN 81 MG CHEWABLE TABLET PO SCH (09:53)
[2022-05-12] MEDS: QUEtiapine FUMARATE 100 MG TABLET PO SCH (09:54)
[2022-05-12] MEDS: HEPARIN SODIUM,PORCINE 5,000 UNITS/ML VIAL SQ SCH ×2 (09:54→16:00)
[2022-05-12 11:20] VITALS: BP 119/60
[2022-05-12] MEDS: CefTRIAXone 1 GM/DEXTROSE 50 ML IV SCH (12:00)
[2022-05-12 14:46] LABS: GLUCOMETER DEV NAME(LOC) 5S.2B; GLUCOSE,POINT OF CARE 186 MG/DL (70-110)
[2022-05-12 16:02] VITALS: BP 125/69
[2022-05-12 18:21] LABS: GLUCOMETER DEV NAME(LOC) 5N.1C; GLUCOSE,POINT OF CARE 181 MG/DL (70-110)
== END 2022-05-12 16:25 | disposition home health service (06) | DRG 689 ==
LOC: EMS 06:59 → 5N 13:27
PROVIDERS: ADMIT Internal Medicine; ATTEND Internal Medicine
PROC: 0DJ08ZZ Inspection of Upper Intestinal Tract, Via Natural or Artificial Opening Endoscopic (ICD-10-PCS; 2022-05-09)
PROC: 0DH63UZ Insertion of Feeding Device into Stomach, Percutaneous Approach (ICD-10-PCS; principal; 2022-05-09 09:00)
DX: N39.0 Urinary tract infection, site not specified (principal); G92.8 Other toxic encephalopathy; Z68.1 Body mass index [BMI] 19.9 or less, adult; G91.9 Hydrocephalus, unspecified; K29.70 Gastritis, unspecified, without bleeding; R62.7 Adult failure to thrive; I10 Essential (primary) hypertension; E11.9 Type 2 diabetes mellitus without complications; F20.9 Schizophrenia, unspecified; Z20.822 Contact with and (suspected) exposure to COVID-19; E86.0 Dehydration; R13.10 Dysphagia, unspecified; G93.89 Other specified disorders of brain; I25.10 Atherosclerotic heart disease of native coronary artery without angina pectoris; F41.9 Anxiety disorder, unspecified; Z95.1 Presence of aortocoronary bypass graft; Z79.899 Other long term (current) drug therapy; Z88.5 Allergy status to narcotic agent; Z87.440 Personal history of urinary (tract) infections; Z86.73 Personal history of transient ischemic attack (TIA), and cerebral infarction without residual deficits; Z79.82 Long term (current) use of aspirin; T43.595A Adverse effect of other antipsychotics and neuroleptics, initial encounter
CPT/HCPCS: 51702; 70450; 71045; 74176; 80048; 80053; 81001; 82140; 82962; 83605; 83690; 83735; 83880; 84100; 84145; 84443; 84484; 85025; 85610; 85730; 87040; 87086; 87186; 92610; 93005; 97161; 99285; G0480; J0171; J0696; J1644; J1815; J2704; J3411; J3475; J3490; J7030; J7050; J7060; 36415-L1; 36415-TC

== ENCOUNTER 2022-05-15 17:09 | Emergency (ER) | payer MEDICARE ==
[~2022-05-15] VITALS: Ht 167.6 cm; Wt 60.0 kg
[~2022-05-15 17:09] MED LIST changes: +ALPR-705 PO; -AMLO-258 PO; +CEPH-558 PO; -CEPH250S56 PO; +INSLAN SQ; +MEMA5 PO
[2022-05-15 18:02] VITALS: BP 0/0
== END 2022-05-15 18:00 ==
LOC: EMS 17:09
DX: I46.9 Cardiac arrest, cause unspecified (principal); I25.10 Atherosclerotic heart disease of native coronary artery without angina pectoris; E11.9 Type 2 diabetes mellitus without complications; I10 Essential (primary) hypertension; F20.9 Schizophrenia, unspecified; I63.9 Cerebral infarction, unspecified; Z88.5 Allergy status to narcotic agent; Z98.890 Other specified postprocedural states
CPT/HCPCS: 99291; Z7502